=== PATIENT | female | born 1980 | race Caucasian/White ===

== ENCOUNTER → 2018-05-30 09:10 | Outpatient (CLI) | payer OTHER, SELFPAY ==
--- NOTE | 2018-05-30 | DI.US.S_ITS ---
PROCEDURE: US PELVIC COMPLETE INDICATIONS: BRCA2, PRE HYSTERECTOMY TECHNIQUE: Real-time scanning was performed of the pelvic organs, with image documentation. Additional endovaginal scanning was necessary due to incomplete visualization of the adnexal and endometrial structures by transabdominal scanning. COMPARISON: None. FINDINGS: Transabdominal scanning: Limited scanning through the kidneys shows no hydronephrosis. No pathologic free abdominal or pelvic fluid. Endovaginal scanning: Uterus: Uterus is normal in size at 9.2 x 4.9 x 6.9 cm. The endometrium measures 13.9 mm in combined thickness. The cervix is within normal limits. Ovaries: The right ovary measures 2.7 x 1.6 x 2.6 cm. In blood flow is demonstrated to the right ovary, which has a normal arterial Doppler waveform. A small (1.3 cm) echogenic nodule within the right ovary demonstrates peripheral vascularity, which there are present a recently ruptured follicle. The left ovary measures 2.09 x 2.5 cm and is normal in size. Good flow is demonstrated to the left ovary, which has a normal arterial Doppler waveform. A collapsing follicle is present involving the left ovary measuring up to 1.5 cm. IMPRESSION: 1. Unremarkable uterus. 2. The ovaries appear to be within normal limits. Echogenic nodule within the right ovary probably represents a small hemorrhagic follicle. A collapsing left ovarian follicle is noted. Dictated by: Landen Ruff M.D. on 05/30/2018 at 9:05 Approved by: Landen Ruff M.D. on 05/30/2018 at 9:28
[2018-05-30 10:14] LABS: Cancer Antigen 125 22 U/mL (0-35)
== END ==
PROVIDERS: PCP Family Medicine; Visit Provider Obstetrics & Gynecology
DX: Z15.01 Genetic susceptibility to malignant neoplasm of breast (principal); Z15.09 Genetic susceptibility to other malignant neoplasm
CPT/HCPCS: 36415; 76830; 76856; 86304

== ENCOUNTER → 2018-10-25 08:01 | Outpatient (CLI) | payer OTHER, SELFPAY ==
--- NOTE | 2018-10-25 | DI.US.S_ITS ---
PROCEDURE: US PELVIC COMPLETE INDICATIONS: BRCA 2 POSITIVE TECHNIQUE: Real-time scanning was performed of the pelvic organs, with image documentation. Additional endovaginal scanning was necessary due to incomplete visualization of the adnexal and endometrial structures by transabdominal scanning. COMPARISON: [facility], , US PELVIC COMPLETE, 05/30/2018, 9:27. FINDINGS: Transabdominal scanning: Limited scanning through the kidneys shows no hydronephrosis. No pathologic free abdominal or pelvic fluid. Endovaginal scanning: Uterus: Uterus is normal in size at 8.8 x 4.3 x 6.9 cm. The endometrium measures 6.1 mm in combined thickness. Ovaries: Ovaries normal in size measuring 3.0 x 2.0 x 1.9 cm on the right and 3.7 x 2.3 x 2.0 cm on the left. Bilateral follicular cysts present, largest measuring 1.9 cm on the left. IMPRESSION: Bilateral physiologic follicles. Dictated by: Benjamin SMITH Interpreted: Milo Gómez MD on 10/25/2018 at 11:54 Approved by: Milo Gómez M.D. on 10/25/2018 at 16:07
[2018-10-25 09:55] LABS: Cancer Antigen 125 15 U/mL (0-35)
== END ==
PROVIDERS: PCP Family Medicine; Visit Provider Obstetrics & Gynecology
DX: Z15.01 Genetic susceptibility to malignant neoplasm of breast (principal); Z15.09 Genetic susceptibility to other malignant neoplasm; N83.02 Follicular cyst of left ovary; N83.01 Follicular cyst of right ovary
CPT/HCPCS: 36415; 76830; 76856; 86304

== ENCOUNTER 2018-11-30 20:39 | Emergency (ER) | payer OTHER, SELFPAY ==
[2018-11-30 20:41] VITALS: BP 116/74; PULSE 83; RESP 20; TEMP 36.7; O2SAT 100; BMI 22.1
[2018-11-30 21:22] LABS: Add Manual Diff / Slide Review NO; Basophils Absolute Auto 100 /uL (0-100); Basophils Percent Auto 0.7 % (0-2); Eosinophils Absolute Auto 300 /uL (0-450); Eosinophils Percent Auto 2.6 % (2-4); Hematocrit 37.3 % (36-46); Hemoglobin 12.3 g/dL (12.0-16.0); Lymphocytes Absolute Auto 2200 /uL (1100-4500); Lymphocytes Percent Auto 20.2 % (25-40); Mean Corpuscular Hemoglobin 29.2 PG (26-34); Mean Corpuscular Volume 88.5 fL (80-100); Monocytes Absolute Auto 600 /uL (0-900); Monocytes Percent Auto 5.9 % (3-14); Neutrophils Absolute Auto 7700 /uL (1500-7000); Neutrophils Percent Auto 70.6 % (50-75); Platelet Count 327 X10^3/uL (150-400); Red Blood Cell Count 4.22 X10^6/uL (4.0-5.2); Red Cell Distribution Width 15.6 % (11.6-14.8); White Blood Cell Count 10.9 X10^3/uL (4.5-11.0)
--- NOTE | 2018-11-30 21:26 | DI.CT.S_ITS ---
PROCEDURE: CT ANGIO CHEST PE PROTOCOL INDICATIONS: short of breath recent surgery TECHNIQUE: After the administration of intravenous contrast, 2 mm thick sections acquired from the pulmonary apices to the posterior costophrenic angles. 3-dimensional maximum intensity projection (MIP) coronal and sagittal reformats were then acquired through the thorax. For radiation dose reduction, the following was used: automated exposure control, adjustment of mA and/or kV according to patient size. COMPARISON: None. FINDINGS: Image quality: Excellent. Pulmonary arteries: Pulmonary arteries are normal in size, and demonstrate no intraluminal filling defects to suggest central pulmonary embolism. Lungs and pleura: Lungs are clear. No pleural effusions or pneumothorax. Central and peripheral airways are patent. Mediastinum: Heart size is normal, without pericardial effusion. No mediastinal or hilar adenopathy. Thoracic aorta is normal in caliber and enhancement. Esophagus is normal in caliber, without hiatal hernia. Bones and chest wall: No suspicious bony lesions. Ribs and thoracic spine appear intact throughout. Thyroid gland is within normal limits. No axillary or supraclavicular adenopathy. Abdomen: Visualized upper abdominal solid organs appear normal in the early arterial phase of enhancement. IMPRESSION: 1. No acute process. 2. No pulmonary embolus. Dictated by: Bernie May M.D. on 12/01/2018 at 7:34 Approved by: Bernie May M.D. on 12/01/2018 at 7:36
[2018-11-30 21:27] LABS: Alanine Aminotransferase 13 IU/L (9-52); Albumin 4.4 g/dL (3.5-5.0); Albumin Globulin Ratio 1.5 (1.0-2.8); Alkaline Phosphatase 64 U/L (38-126); Aspartate Aminotransferase 20 IU/L (14-36); BUN Creatinine Ratio 18.8 (6-22); Bilirubin Total 0.8 mg/dL (0.2-1.3); Blood Urea Nitrogen 15 mg/dL (7-17); Calcium 9.4 mg/dL (8.4-10.2); Carbon Dioxide 28 mmol/L (22-32); Chloride 102 mmol/L (98-107); Estimated Glomerular Filt Rate > 60.0 mL/min (>60); Glucose 89 mg/dL (70-100); HEMOLYSIS < 15 (0-50); Potassium 3.7 mmol/L (3.4-5.1); Sodium 138 mmol/L (137-145); Total Protein 7.4 g/dL (6.3-8.2)
[2018-11-30 21:30] VITALS: BP 108/69; PULSE 62; RESP 16; O2SAT 100
[2018-11-30 22:21] VITALS: PULSE 61; RESP 14; O2SAT 98
[2018-11-30] MEDS: ALBUTEROL 2.5 MG/3 ML NEB (ADULT) INH (22:21)
--- NOTE | 2018-11-30 23:03 | ED.SOB ---
HPI - SOB/Dyspnea General Chief Complaint: Shortness of Breath/Dyspnea Stated Complaint: SOB Time Seen by Provider: 11/30/18 20:48 Source: patient Mode of arrival: ambulatory Limitations: no limitations History of Present Illness Patient is a 38-year-old female who presents with heart palpitations shortness of breath. She has a recent diagnosis of bracket a. She had prophylactic bilateral mastectomy. 3 days ago she had liposuction and filler. She started having heart palpitations and shortness of breath with exertion and at rest. Denies any fever, although she is having dry non- productive cough. No hemoptysis. MD Complaint: shortness of breath Related Data Home Medications Medication Instructions Recorded Confirmed doxycycline hyclate 100 mg capsule 100 mg PO BID 11/14/17 11/14/17 Allergies Allergy/AdvReac Type Severity Reaction Status Date / Time amoxicillin [AMOXICILLIN] Allergy Unknown RASH Verified 11/14/17 10:12 Review of Systems Review of Systems GENERAL: Denies chills, fatigue, malaise, fever, sweats, travel HEENT: Denies sinus pain, ear pain, sore throat, difficulty swallowing, neck pain RESPIRATORY: See HPI CARDIOVASCULAR: Denies chest pain, palpitations, orthopnea, edema GASTROINTESTINAL: Denies nausea, vomiting, abdominal pain, diarrhea, constipation, melena. : Denies dysuria, frequency, incontinence, hematuria, urinary retention, flank pain. MUSCULOSKELETAL: Denies weakness, joint pain, or bony pain SKIN: No rash, no erythema, no pruritus NEUROLOGIC: Denies weakness, dizziness, headache, numbness, change in speech, confusion PSYCHIATRIC: No concerning psychosocial issues. 12 point review of systems is negative except for those stated above and HPI PFSH Medical History Migraines (Chronic) Surgical History Anesthesia (Inactive) Status post appendectomy Status post knee surgery Status post knee surgery Family History Father Age: 61 Colon polyps Social History Smoking Status: Never smoker Family History Father Age: 61 Colon polyps Social History Smoking Status: Never smoker Exam Initial Vital Signs Initial Vital Signs: Vital Signs Temperature 98.0 F 11/30/18 20:41 Pulse Rate 83 11/30/18 20:41 Respiratory Rate 20 11/30/18 20:41 Blood Pressure 116/74 11/30/18 20:41 Pulse Oximetry 100 11/30/18 20:41 GENERAL: Well-appearing, well-nourished and in no acute distress. HEENT: Head atraumatic,EOMI, pupils reactive, face symmetric, moist mucous membranes CARDIOVASCULAR: Regular rate and rhythm without murmurs, rubs or gallops. RESPIRATORY: Breath sounds equal bilaterally, no wheezes rales or rhonchi. ABDOMEN: Soft, nontender. Normoactive bowel sounds all 4 quadrants. No guarding or rebound. EXTREMITIES: Normal range of motion, no clubbing or edema. Neurovascularly intact NEUROLOGICAL: Alert and oriented x4.Normal gait and speech. Cranial nerves II through XII grossly intact. SKIN: Hematoma as bilateral flanks from lipoma. No other erythema testicles or rashes Course Orders Ordered: ED Orders 11/30/18 20:59 Complete Blood Count AUTO DIFF Stat Comprehensive Metabolic Panel Stat 11/30/18 21:16 Consult to Respiratory Therapy Evaluate & Treat XR chest 1V Stat 11/30/18 21:26 CT angio chest PE protocol Stat Discontinued Medications Albuterol (Ventolin) 2.5 mg INH NOW ONE Stop: 11/30/18 21:27 Last Admin: 11/30/18 22:21 Dose: 2.5 mg Vital Signs - 8 hr 11/30/18 20:41 11/30/18 21:30 11/30/18 22:21 Temperature 98.0 F Pulse Rate 83 62 61 Respiratory Rate 20 16 14 Blood Pressure 116/74 Blood Pressure [Left Arm] 108/69 Pulse Oximetry 100 100 98 11/30/18 23:27 Temperature Pulse Rate 80 Respiratory Rate 17 Blood Pressure 99/51 L Blood Pressure [Left Arm] Pulse Oximetry 96 MDM - SOB/Dyspnea Lab Data Attestation: I reviewed the patient's lab results. Result diagrams: 11/30/18 20:59 11/30/18 20:59 Lab Results 11/30/18 11/30/18 Range/Units 20:59 20:59 WBC 10.9 (4.5-11.0) X10^3/uL RBC 4.22 (4.0-5.2) X10^6/uL Hgb 12.3 (12.0-16.0) g/dL Hct 37.3 (36-46) % MCV 88.5 (80-100) fL MCH 29.2 (26-34) PG MCHC 33.0 (30-36) % RDW 15.6 H (11.6-14.8) % Plt Count 327 (150-400) X10^3/uL Neut % (Auto) 70.6 (50-75) % Lymph % (Auto) 20.2 L (25-40) % [place] % (Auto) 5.9 (3-14) % Eos % (Auto) 2.6 (2-4) % Baso % (Auto) 0.7 (0-2) % Neut # (Auto) 7700 H (8091-6083) /uL Lymph # (Auto) 2200 (5712-5729) /uL [place] # (Auto) 600 (0-900) /uL Eos # (Auto) 300 (0-450) /uL Baso # (Auto) 100 (0-100) /uL Sodium 138 (137-145) mmol/L Potassium 3.7 (3.4-5.1) mmol/L Chloride 102 (98-107) mmol/L Carbon Dioxide 28 (22-32) mmol/L BUN 15 (7-17) mg/dL Creatinine 0.80 (0.52-1.04) mg/dL Estimated GFR > 60.0 (>60) mL/min BUN/Creatinine Ratio 18.8 (6-22) Glucose 89 (70-100) mg/dL Calcium 9.4 (8.4-10.2) mg/dL Total Bilirubin 0.8 (0.2-1.3) mg/dL AST 20 (14-36) IU/L ALT 13 (9-52) IU/L Alkaline Phosphatase 64 (38-126) U/L Total Protein 7.4 (6.3-8.2) g/dL Albumin 4.4 (3.5-5.0) g/dL Globulin 3.0 (1.7-4.1) g/dL Albumin/Globulin Ratio 1.5 (1.0-2.8) Point of Care Testing Test Results Negative Urine Dip Bedside Urine Glucose Negative Bedside Urine Bilirubin - Negative Bedside Urine Ketone - Negative Urine Specific [place] 1.030 Bedside Urine Occult Blood - Negative Bedside Urine pH 5.5 Bedside Urine Protein - Negative Bedside Urine Urobilinogen - Negative Bedside Urine Nitrite - Negative Bedside Urine Leukocytes - Negative Esterase Imaging Data CT scan - chest: 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 [place] in able to go home. Discharge Plan Departure Patient Disposition: Home Clinical Impression: Acute bronchospasm Discharge Date/Time: 11/30/18 23:31 Interventions: ED Discharge Assessment Last Done: 11/30/18 23:27 Instructions: DI for Acute Bronchitis Activity Restrictions/Additional Instructions: *You have been diagnosed with bronchospasm *What to do: PE study is negative. Blood work reassuring. *Continue to take medications as directed *Follow up with your primary care provider in 2-3 days *Return to ER if you should have increasing shortness of breath or heart palpitations. or any new, worsening or concerning symptoms Prescriptions: No Action doxycycline hyclate 100 mg capsule 100 mg PO BID RF: 0 Referrals: Berny Cruz MD [Primary Care Provider] -
--- NOTE | 2018-11-30 23:06 | ED_ITS ---
HPI - SOB/Dyspnea General Chief Complaint: Shortness of Breath/Dyspnea Stated Complaint: SOB Time Seen by Provider: 11/30/18 20:48 Source: patient Mode of arrival: ambulatory Limitations: no limitations History of Present Illness Patient is a 38-year-old female who presents with heart palpitations shortness of breath. She has a recent diagnosis of bracket a. She had prophylactic bilateral mastectomy. 3 days ago she had liposuction and filler. She started having heart palpitations and shortness of breath with exertion and at rest. D enies any fever, although she is having dry non- productive cough. No hemoptysis. MD Complaint: shortness of breath Related Data Home Medications Medication Instructions Recorded Confirmed doxycycline hyclate 100 mg capsule 100 mg PO BID 11/14/17 11/14/17 Allergies Allergy/AdvReac Type Severity Reaction Status Date / Time amoxicillin [AMOXICILLIN] Allergy Unknown RASH Verified 11/14/17 10:12 Review of Systems Review of Systems GENERAL: Denies chills, fatigue, malaise, fever, sweats, travel HEENT: Denies sinus pain, ear pain, sore throat, difficulty swallowing, neck pain RESPIRATORY: See HPI CARDIOVASCULAR: Denies chest pain, palpitations, orthopnea, edema GASTROINTESTINAL: Denies nausea, vomiting, abdominal pain, diarrhea, constipation, melena. : Denies dysuria, frequency, incontinence, hematuria, urinary retention, flank pain. MUSCULOSKELETAL: Denies weakness, joint pain, or bony pain SKIN: No rash, no erythema, no pruritus NEUROLOGIC: Denies weakness, dizziness, headache, numbness, change in speech, confusion PSYCHIATRIC: No concerning psychosocial issues. 12 point review of systems is negative except for those stated above and HPI PFSH Medical History Migraines (Chronic) Surgical History Anesthesia (Inactive) Status post appendectomy Status post knee surgery Status post knee surgery Family History Father Age: 61 Colon polyps Social History Smoking Status: Never smoker Family History Father Age: 61 Colon polyps Social History Smoking Status: Never smoker Exam Initial Vital Signs Initial Vital Signs: Vital Signs Temperature 98.0 F 11/30/18 20:41 Pulse Rate 83 11/30/18 20:41 Respiratory Rate 20 11/30/18 20:41 Blood Pressure 116/74 11/30/18 20:41 Pulse Oximetry 100 11/30/18 20:41 GENERAL: Well-appearing, well-nourished and in no acute distress. HEENT: Head atraumatic,EOMI, pupils reactive, face symmetric, moist mucous membranes CARDIOVASCULAR: Regular rate and rhythm without murmurs, rubs or gallops. RESPIRATORY: Breath sounds equal bilaterally, no wheezes rales or rhonchi. ABDOMEN: Soft, nontender. Normoactive bowel sounds all 4 quadrants. No guarding or rebound. EXTREMITIES: Normal range of motion, no clubbing or edema. Neurovascularly intact NEUROLOGICAL: Alert and oriented x4.Normal gait and speech. Cranial nerves II through XII grossly intact. SKIN: Hematoma as bilateral flanks from lipoma. No other erythema testicles or rashes Course Orders Ordered: ED Orders 11/30/18 20:59 Complete Blood Count AUTO DIFF Stat Comprehensive Metabolic Panel Stat 11/30/18 21:16 Consult to Respiratory Therapy Evaluate & Treat XR chest 1V Stat 11/30/18 21:26 CT angio chest PE protocol Stat Discontinued Medications Albuterol (Ventolin) 2.5 mg INH NOW ONE Stop: 11/30/18 21:27 Last Admin: 11/30/18 22:21 Dose: 2.5 mg Vital Signs - 8 hr 11/30/18 20:41 11/30/18 21:30 11/30/18 22:21 Temperature 98.0 F Pulse Rate 83 62 61 Respiratory Rate 20 16 14 Blood Pressure 116/74 Blood Pressure [Left Arm] 108/69 Pulse Oximetry 100 100 98 11/30/18 23:27 Temperature Pulse Rate 80 Respiratory Rate 17 Blood Pressure 99/51 L Blood Pressure [Left Arm] Pulse Oximetry 96 MDM - SOB/Dyspnea Lab Data Attestation: I reviewed the patient's lab results. Result diagrams: 11/30/18 20:59 11/30/18 20:59 Lab Results 11/30/18 11/30/18 Range/Units 20:59 20:59 WBC 10.9 (4.5-11.0) X10^3/uL RBC 4.22 (4.0-5.2) X10^6/uL Hgb 12.3 (12.0-16.0) g/dL Hct 37.3 (36-46) % MCV 88.5 (80-100) fL MCH 29.2 (26-34) PG MCHC 33.0 (30-36) % RDW 15.6 H (11.6-14.8) % Plt Count 327 (150-400) X10^3/uL Neut % (Auto) 70.6 (50-75) % Lymph % (Auto) 20.2 L (25-40) % [place] % (Auto) 5.9 (3-14) % Eos % (Auto) 2.6 (2-4) % Baso % (Auto) 0.7 (0-2) % Neut # (Auto) 7700 H (8104-6873) /uL Lymph # (Auto) 2200 (5932-7051) /uL [place] # (Auto) 600 (0-900) /uL Eos # (Auto) 300 (0-450) /uL Baso # (Auto) 100 (0-100) /uL Sodium 138 (137-145) mmol/L Potassium 3.7 (3.4-5.1) mmol/L Chloride 102 (98-107) mmol/L Carbon Dioxide 28 (22-32) mmol/L BUN 15 (7-17) mg/dL Creatinine 0.80 (0.52-1.04) mg/dL Estimated GFR > 60.0 (>60) mL/min BUN/Creatinine Ratio 18.8 (6-22) Glucose 89 (70-100) mg/dL Calcium 9.4 (8.4-10.2) mg/dL Total Bilirubin 0.8 (0.2-1.3) mg/dL AST 20 (14-36) IU/L ALT 13 (9-52) IU/L Alkaline Phosphatase 64 (38-126) U/L Total Protein 7.4 (6.3-8.2) g/dL Albumin 4.4 (3.5-5.0) g/dL Globulin 3.0 (1.7-4.1) g/dL Albumin/Globulin Ratio 1.5 (1.0-2.8) Point of Care Testing Test Results Negative Urine Dip Bedside Urine Glucose Negative Bedside Urine Bilirubin - Negative Bedside Urine Ketone - Negative Urine Specific [place] 1.030 Bedside Urine Occult Blood - Negative Bedside Urine pH 5.5 Bedside Urine Protein - Negative Bedside Urine Urobilinogen - Negative Bedside Urine Nitrite - Negative Bedside Urine Leukocytes - Negative Esterase Imaging Data CT scan - chest: 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 [place] in able to go home. Discharge Plan Departure Patient Disposition: Home Clinical Impression: Acute bronchospasm Discharge Date/Time: 11/30/18 23:31 Interventions: ED Discharge Assessment Last Done: 11/30/18 23:27 Instructions: DI for Acute Bronchitis Activity Restrictions/Additional Instructions: *You have been diagnosed with bronchospasm *What to do: PE study is negative. Blood work reassuring. *Continue to take medications as directed *Follow up with your primary care provider in 2-3 days *Return to ER if you should have increasing shortness of breath or heart palpitations. or any new, worsening or concerning symptoms Prescriptions: No Action doxycycline hyclate 100 mg capsule 100 mg PO BID RF: 0 Referrals: Berny Cruz MD [Primary Care Provider] -
[2018-11-30 23:27] VITALS: BP 99/51; PULSE 80; RESP 17; O2SAT 96
== END 2018-11-30 23:31 | disposition home or self-care (01) ==
PROVIDERS: Emergency Provider Emergency Medicine; PCP Family Medicine
DX: J98.01 Acute bronchospasm (principal); R00.2 Palpitations
CPT/HCPCS: 71275; 80053; 81003; 81025; 85025; 93005; 94640; 99283; 99285; J7613; Q9967

== ENCOUNTER 2019-06-13 10:08 | Day surgery (SDC) | payer OTHER, SELFPAY ==
[2019-06-13] VITALS (11 sets, daily range): BP systolic 93–109; BP diastolic 60–73; PULSE 48–87; RESP 14–21; TEMP 36.2–37.2; O2SAT 97–100; BMI 22.1
--- NOTE | 2019-06-13 | PATH_ITS ---
[facility] Accession Number: [id number] . 01 Material submitted: . uterine adnexa - BILATERAL FALLOPIAN TUBES AND OVARIES . 01 Clinical history: . LAP RADHA SALPINGO-OOPHORECTOMY . 02 Diagnosis: Bilateral Fallopian Tubes and Ovaries, Bilateral Salpingo-oophorectomy: Grossly described ovary #1 with two prominent corpus luteum cysts (each approximately 10 mm) and one benign serous cyst (approximately 8 mm); negative for atypia or malignancy. Grossly described ovary #2 with a benign follicular cyst (approximately 4 mm); negative for atypia or malignancy. Grossly described fallopian tube #1 with benign paratubal cysts (ranging from less than 1 mm to 2 mm); negative for atypia or malignancy. Grossly described fallopian tube #2 with a benign paratubal fibroma (4 mm) and benign paratubal cysts (up to 1.8 cm); negative for cytologic atypia or malignancy. [facility] 06/16/2019 1117 Local . 02 Electronically signed: . Katya Tamez MD, Pathologist NPI- [id number] . 01 Gross description: . Received in formalin, labeled bilateral fallopian tubes and ovaries, are two ovaries (ovary #1: 3.7 x 2.3 x 1.6 cm; ovary #2: 3.4 x 2.4 x 1.0 cm) with attached fimbriated fallopian tubes (tube #1: length-5.1 cm, diameter-0.8 cm; tube #2: length-6.2 cm, diameter-0.7 cm). The ovaries have beard-yellow, smooth, shiny, flat, focally bosselated serosa with beard-white, solid, cystic parenchyma with corpus albicans and corpus luteum identified. The cavities (0.1-0.7 cm) contain clear, colorless fluid. The fallopian tubes have de la vega-purple, smooth, shiny serosa beard unremarkable lumens. Fallopian tube #2 contains a paratubal cyst (1.8 x 1.5 x 1.0 cm) containing clear, colorless fluid. A beard-white, solid, firm nodule (0.4 x 0.3 x 0.2 cm) is also identified involving the fimbria #2. Section code: (A1) ovary #1, rental representative serial section; (A2) ovary #2, rental representative serial section; (A3) fallopian tube #1, rental representative serial section; (A4-A5) fimbria #1, bivalved, entirely submitted; (A6) fallopian tube #2, rental representative serial section; (A7-A8) fimbria #2, bivalved, entirely submitted. ([id number]) /[facility] 06/14/2019 0916 Local . 02 Pathologist provided ICD-10: Z15.01 . 02 CPT . 892506 Performed at: 01 [facility] [address] [id number] MD Josias Clark MD Phone: [phone] Performed at: 02 [facility] [address] [place] [id number] MD Marjorie Torrez MD Phone: [phone]
[2019-06-13] MEDS: LACTATED RINGERS 1,000 ML 100 ML IV (10:25)
--- NOTE | 2019-06-13 11:18 | SUR.OPER ---
Lithotomy on padded OR bed, head on pillow, arms padded and tucked at sides. Legs secured in padded yellow fins stirrups.
[2019-06-13] MEDS: SCOPOLAMINE 1 PATCH TOP (11:22)
[2019-06-13] MEDS: ACETAMINOPHEN IV 1,000 MG/100 ML VIAL 400 MG IV (12:11)
[2019-06-13] MEDS: BUPIVACAINE 0.5% W/ EPI (PF) 30 ML VIAL INJ (12:36)
--- NOTE | 2019-06-13 13:24 | SUR.PHASEI ---
Declined Fentanyl for pain
--- NOTE | 2019-06-13 13:33 | SUR.PHASEI ---
Dr Wheeler notified patient's hr down to 47-50. OK for patient to discharge.
--- NOTE | 2019-06-17 14:01 | PM.PREOP ---
Pre-operative Note Interval Note History & Physical reviewed/Exam performed by Physician: Yes Changes to H&P: No
--- NOTE | 2019-06-17 14:02 | PM.GYNOP.1 ---
Operative Date/Time/Diagnoses Date of procedure: 06/13/19 Time of procedure: 13:30 Pre-op diagnosis: BRCA 2 positive Post-op diagnosis: same Procedure & Clinicians Procedure: Procedures Operation Date: 06/13/19 11:15 Actual Procedures Side Surgeon p Laparoscopic Salpingectomy-oophorectomy Bilateral Marimar Spicer MD Indications: BRCA 2 positive Surgeon: Marimar Spicer Anesthesia Type: General Operative Notes Findings: Normal tubes and ovaries Normal liver Appendix previously removed Closure Type: primary Specimen(s): left tube & ovary and right tube & ovary Estimated blood loss (mL): 5 Blood products transfused: none Procedure in detail: Patient was taken to the operating room where she was placed in the dorsal supine position. After adequate general endotracheal anesthesia was achieved, she was placed in the dorsal lithotomy position, and prepped and draped in the usual sterile fashion. A time-out was performed. A bivalve speculum was placed into the vagina and the anterior lip of the cervix was grasped with a single-tooth tenaculum. The cervical os was sequentially dilated until the Zumi uterine manipulator could pass easily into the endometrial cavity. The single-tooth tenaculum was removed from the anterior lip of the cervix. The bivalve speculum was removed from the vagina. Attention was then turned to the abdomen where 6 cc of 0.5% Marcaine were injected on the upper edge of the umbilical incision. A 5 mm incision was made. The Veress needle was placed into the peritoneal cavity, and its placement confirmed by aspiration and drop test. The abdominal cavity was insufflated with 3.4 L of CO2. The Veress needle was removed, and a 5 mm trocar was placed without difficulty. Three other incisions were made along the reconstructions scar 2 of them 5 mm in length on the outer edges after 6 cc of 0.5% Marcaine with epinephrine were injected. A 3rd one was made in the midline approximately 11 mm. Two 5 mm trocars were placed on the lateral incisions. An 11 mm trocar was placed in the midline. The right tube and ovary were grasped with an atraumatic grasper. Using the PlasmaKinetic was settings at 40 w, the infundibulopelvic ligament on the right side was cauterized and cut. As was the mesosalpinx all the way down to the cornu of the uterus. The utero-ovarian ligaments were cauterized and cut. The tube was amputated at the cornua. Hemostasis was achieved. This was repeated on the patient's left side. A small endobag was placed through the suprapubic trocar. The tubes and ovaries were placed into the bag. The trocar was removed. The fascial incision was extended bluntly with a Jah. The bag was removed through the suprapubic incision. The pelvis was irrigated and there was no bleeding noted. The instruments were removed from the abdomen. The CO2 was allowed to escape. The fascial incision on the suprapubic incision was closed with 0 Vicryl in a running fashion. All of the incisions were closed superficially with 4 0 Biosyn in a subcuticular fashion. Steri-Strips, 2 x 2, and op site were placed. The Zumi uterine manipulator was removed from the uterus. Sponge, lap, and instrument counts were correct x2. The patient tolerated the procedure well, and was taken to PACU in stable condition. Complications: none Post-operative Condition: stable Disposition: PACU Plan for aftercare: Home after recovery
== END 2019-06-13 14:32 | disposition home or self-care (01) ==
PROVIDERS: PCP Family Medicine; Visit Provider Obstetrics & Gynecology
PROC: 0UT74ZZ Resection of Bilateral Fallopian Tubes, Percutaneous Endoscopic Approach (ICD-10-PCS; CPT 58661; principal; 2019-06-13 11:15)
DX: Z40.02 Encounter for prophylactic removal of ovary(s) (principal); Z15.01 Genetic susceptibility to malignant neoplasm of breast; G43.909 Migraine, unspecified, not intractable, without status migrainosus; N83.10 Corpus luteum cyst of ovary, unspecified side; N83.00 Follicular cyst of ovary, unspecified side; N83.8 Other noninflammatory disorders of ovary, fallopian tube and broad ligament
CPT/HCPCS: 58661; J0131; J1100; J1885; J2250; J2405; J2704; J3010

== ENCOUNTER → 2021-01-19 09:29 | Outpatient (CLI) | payer OTHER, SELFPAY ==
[2021-01-19 09:39] LABS: Bacteria Urine None Seen; RBC Urine None Seen (0-5/HPF); WBC Urine None Seen (0-5/HPF)
[2021-01-19 13:15] LABS: Appearance Urine UA CLEAR; Bilirubin Urine UA NEGATIVE (NEGATIVE); Color Urine UA YELLOW; Glucose Urine UA NEGATIVE (Negative); Ketones Urine UA NEGATIVE (NEGATIVE); Leukocyte Esterase Urine UA NEGATIVE (NEGATIVE); Nitrite Urine UA NEGATIVE (Negative); Occult Blood Urine UA NEGATIVE (Negative); Protein Urine UA NEGATIVE (Negative); Specific Gravity Urine UA 1.015 (1.000-1.035); Urobilinogen Urine UA 0.2 E.U./dL (0.2)
[2021-01-19 13:18] LABS: pH Urine UA 6.5 (4.5-8.0)
[2021-01-19 13:37] LABS: Squamous Epithelial Cell Urine 10-30 /HPF (0-5/HPF)
[2021-01-19 13:38] LABS: Culture Indicated Urine Cult Not Indicated
== END ==
PROVIDERS: PCP Family Medicine; Referring Provider Family Medicine; Visit Provider Family Medicine
DX: R30.0 Dysuria (principal)
CPT/HCPCS: 81001

== ENCOUNTER → 2021-02-02 18:31 | Outpatient (CLI) | payer OTHER, SELFPAY ==
[2021-02-02 18:55] LABS: COVID19 -Nasal RAPID Negative (Negative)
== END ==
PROVIDERS: PCP Family Medicine; Visit Provider Nurse Practitioner
DX: J31.2 Chronic pharyngitis (principal); Z20.822 Contact with and (suspected) exposure to COVID-19
CPT/HCPCS: 87070; 87635

== ENCOUNTER → 2021-04-20 17:35 | Outpatient (CLI) | payer OTHER, SELFPAY ==
[2021-04-21 06:40] LABS: Candida species Negative (Negative); Gardnerella vaginalis Negative (Negative); Trichomoas vaginalis Negative (Negative)
== END ==
PROVIDERS: PCP Family Medicine; Referring Provider Obstetrics & Gynecology; Visit Provider Obstetrics & Gynecology
DX: N89.8 Other specified noninflammatory disorders of vagina (principal)
CPT/HCPCS: 87480; 87510; 87660

== ENCOUNTER → 2021-06-24 10:42 | Outpatient (CLI) | payer OTHER, SELFPAY ==
[2021-06-24 12:07] LABS: Appearance Urine UA CLEAR; Bilirubin Urine UA NEGATIVE (NEGATIVE); Color Urine UA YELLOW; Glucose Urine UA NEGATIVE (Negative); Ketones Urine UA NEGATIVE (NEGATIVE); Leukocyte Esterase Urine UA NEGATIVE (NEGATIVE); Nitrite Urine UA NEGATIVE (Negative); Occult Blood Urine UA NEGATIVE (Negative); Protein Urine UA NEGATIVE (Negative); Urobilinogen Urine UA 0.2 E.U./dL (0.2)
== END ==
PROVIDERS: PCP Family Medicine; Referring Provider Obstetrics & Gynecology; Visit Provider Obstetrics & Gynecology
DX: N39.0 Urinary tract infection, site not specified (principal)
CPT/HCPCS: 81003

== ENCOUNTER → 2021-12-14 10:49 | Outpatient (CLI) | payer OTHER, SELFPAY ==
[2021-12-14 12:03] LABS: Free T4, Direct Thyroxine 1.07 ng/dL (0.78-2.19)
[2021-12-14 12:17] LABS: Thyroid Stimulating Hormone 1.02 uIU/mL (0.47-4.68)
== END ==
PROVIDERS: PCP Family Medicine; Referring Provider Family Medicine; Visit Provider Family Medicine
DX: R63.5 Abnormal weight gain (principal)
CPT/HCPCS: 36415; 84439; 84443

== ENCOUNTER 2022-02-19 15:26 | Emergency (ER) | payer OTHER, SELFPAY ==
[2022-02-19 15:32] VITALS: BP 114/71; PULSE 86; RESP 22; TEMP 36.6; O2SAT 100
--- NOTE | 2022-02-19 16:41 | ED_ITS ---
HPI - Skin/Abscess/Foreign Bdy General Chief complaint: Skin/Abscess/Foreign Body Stated complaint: Port/Red/Hot/Inflammed/Arm Tingling Time Seen by Provider: 02/19/22 16:00 Source: patient Mode of arrival: Ambulatory Limitations: no limitations History of Present Illness HPI narrative: This is a 41-year-old female with recent diagnosis in January 2022 BRCA positive breast cancer who had had a prior prophylactic mastectomy and oophorectomy. Patient had port placed on Sunday, February 15 they kept access in place and gave her chemo the following day and it has not been accessed since its placement. Patient noticed some very slight redness yesterday it has spread today. She denies fevers or chills. Some mild chest pain at the site, she denies any shortness of breath she is had a little tingling into her left upper extremity, she denies any vomiting but is starting to have some nausea she states she received version of ondansetron that last about 72 hours in the hospital. Patient denies any syncope no swelling of her extremities. She is has not had any other color changes. Patient denies any daily medications currently. Allergic to amoxicillin. She is receiving her care through [facility]. Related Data Previous Rx's Medication Instructions Recorded estradiol 2 mg (7.5 mcg/24 hour) 1 vag ring vaginal [id number] #1 ea 04/25/21 vaginal ring (Estring) rizatriptan 10 mg disintegrating See Rx Instructions .Route 09/12/21 tablet .COMPLEX #8 tabs estradiol 0.075 mg/24 hr See Rx Instructions .Route 01/02/22 semiweekly transdermal patch .COMPLEX #8 patches clindamycin HCl 300 mg capsule 300 mg PO QID #40 caps 02/19/22 Allergies Allergy/AdvReac Type Severity Reaction Status Date / Time amoxicillin [AMOXICILLIN] Allergy Unknown RASH Verified 07/28/21 10:40 Review of Systems Review of Systems ROS Unobtainable: All systems reviewed & are unremarkable except as noted in HPI and below Patient History Medical History BRCA positive Migraines Surgical History Anesthesia History of prophylactic mastectomy of both breasts (06/19/18) Hx of breast reconstruction (11/27/18) Status post appendectomy Status post knee surgery Status post knee surgery Family History Father Age: 64 Colon polyps Social History household members: spouse Smoking Status: Never smoker Smoking Status: Never smoker Exam Narrative Exam Narrative: GENERAL: Alert and oriented x three, female in mild distress. HEENT: Head normocephalic, atraumatic, EOMI, pupils reactive, face symmetric, moist mucous membranes NECK: Supple, full range of motion CARDIOVASCULAR: Regular rate and rhythm without murmurs, rubs or gallops. Patient's port has incisions that appear clean and dry, they have not dehisced there is a surrounding area of erythema around the main portion of the port and just above that is approximately 6 cm x 4 cm at its widest point that. Patient has slight warmth. Mildly tender to touch. No fluctuance or fluid collection. RESPIRATORY: Breath sounds equal bilaterally, no wheezes rales or rhonchi. No tachypnea or accessory muscle use. ABDOMEN: Soft, nontender. Normoactive bowel sounds all 4 quadrants. No guarding or rebound, rigidity, no mass : No CVA tenderness EXTREMITIES: Normal range of motion, no clubbing or edema. Neurovascularly intact. 2+ pulses bilaterally. NEUROLOGICAL: Cranial nerves II through XII grossly intact. Moving all extremities SKIN: Warm, dry, no petechiae, no rashes or lesions other than above. Initial Vital Signs Initial Vital Signs: Vital Signs Temperature 97.8 F 02/19/22 15:32 Pulse Rate 86 02/19/22 15:32 Respiratory Rate 22 02/19/22 15:32 Blood Pressure 114/71 02/19/22 15:32 Pulse Oximetry 100 02/19/22 15:32 Oxygen Delivery Method 02/19/22 15:32 Course Orders Ordered: ED Orders 02/19/22 16:54 CT angio chest PE protocol Stat 02/19/22 17:08 Complete Blood Count AUTO DIFF Stat Comprehensive Metabolic Panel Stat Lactate (Lactic Acid) Stat Partial Thromboplastin Time Stat Procalcitonin Stat Prothrombin Time INR Stat Troponin & CK Cardiac Panel Stat 02/19/22 17:21 Blood Culture Stat Discontinued Medications Clindamycin HCl (Clindamycin 150 Mg Capsule) 300 mg PO NOW ONE Stop: 02/19/22 18:42 Last Admin: 02/19/22 18:45 Dose: 300 mg Documented By: ADITI Clindamycin Phosphate (Cleocin) 900 mg in 50 mls @ 50 mls/hr IV NOW ONE Stop: 02/19/22 18:01 Last Infusion: 02/19/22 18:21 Dose: 0 mls/hr Documented By: Admin: 02/19/22 17:20 Dose: 50 mls/hr Documented By: METE Vital Signs Vital signs: Vital Signs - 8 hr 02/19/22 15:32 Temperature 97.8 F Pulse Rate 86 Respiratory Rate 22 Blood Pressure 114/71 Pulse Oximetry 100 Oxygen Delivery Method Room Air MDM - Skin/Abscess/Foreign Bdy Lab Data Result diagrams: 02/19/22 17:08 02/19/22 17:08 Labs: Lab Results 02/19/22 02/19/22 02/19/22 Range/Units 17:08 17:08 17:08 WBC 4.4 L (4.5-11.0) X10^3/uL RBC 4.65 (4.0-5.2) X10^6/uL Hgb 13.3 (12.0-16.0) g/dL Hct 39.5 (36-46) % MCV 84.8 (80-100) fL MCH 28.6 (26-34) PG MCHC 33.7 (30-36) % RDW 14.8 (11.6-14.8) % Plt Count 276 (150-400) X10^3/uL Neut % (Auto) 67.0 (50-75) % Lymph % (Auto) 27.1 (25-40) % [place] % (Auto) 3.2 (3-14) % Eos % (Auto) 1.9 L (2-4) % Baso % (Auto) 0.8 (0-2) % Neut # (Auto) 2900 (5758-6085) /uL Lymph # (Auto) 1200 (1848-5197) /uL [place] # (Auto) 100 (0-900) /uL Eos # (Auto) 100 (0-450) /uL Baso # (Auto) 0 (0-100) /uL PT 11.5 (10.1-12.7) SECONDS INR 1.0 (0.9-1.3) APTT 34 (26-36) SECONDS Sodium (137-145) mmol/L Potassium (3.4-5.1) mmol/L Chloride (98-107) mmol/L Carbon Dioxide (22-32) mmol/L BUN (7-17) mg/dL Creatinine (0.52-1.04) mg/dL Estimated GFR (>60) mL/min BUN/Creatinine Ratio (6-22) Glucose (70-100) mg/dL Lactate (0.7-2.1) mmol/L Calcium (8.4-10.2) mg/dL Total Bilirubin (0.2-1.3) mg/dL AST (14-36) IU/L ALT (<35) IU/L Alkaline Phosphatase (38-126) U/L Total Creatine Kinase (30-135) U/L CK-MB (CK-2) CK-MB (CK-2) Rel Index Troponin I (0.01-0.034) ng/mL Total Protein (6.3-8.2) g/dL Albumin (3.5-5.0) g/dL Globulin (1.7-4.1) g/dL Albumin/Globulin Ratio (1.0-2.8) Procalcitonin (<0.5) ng/mL 02/19/22 02/19/22 Range/Units 17:08 17:08 WBC (4.5-11.0) X10^3/uL RBC (4.0-5.2) X10^6/uL Hgb (12.0-16.0) g/dL Hct (36-46) % MCV (80-100) fL MCH (26-34) PG MCHC (30-36) % RDW (11.6-14.8) % Plt Count (150-400) X10^3/uL Neut % (Auto) (50-75) % Lymph % (Auto) (25-40) % [place] % (Auto) (3-14) % Eos % (Auto) (2-4) % Baso % (Auto) (0-2) % Neut # (Auto) (9645-2893) /uL Lymph # (Auto) (4088-6164) /uL [place] # (Auto) (0-900) /uL Eos # (Auto) (0-450) /uL Baso # (Auto) (0-100) /uL PT (10.1-12.7) SECONDS INR (0.9-1.3) APTT (26-36) SECONDS Sodium 135 L (137-145) mmol/L Potassium 4.5 (3.4-5.1) mmol/L Chloride 102 (98-107) mmol/L Carbon Dioxide 28 (22-32) mmol/L BUN 12 (7-17) mg/dL Creatinine 1.10 H (0.52-1.04) mg/dL Estimated GFR > 60 (>60) mL/min BUN/Creatinine Ratio 10.9 (6-22) Glucose 98 (70-100) mg/dL Lactate 0.8 (0.7-2.1) mmol/L Calcium 8.8 (8.4-10.2) mg/dL Total Bilirubin 1.3 (0.2-1.3) mg/dL AST 28 (14-36) IU/L ALT 15 (<35) IU/L Alkaline Phosphatase 59 (38-126) U/L Total Creatine Kinase 74 (30-135) U/L CK-MB (CK-2) TNP CK-MB (CK-2) Rel Index TNP Troponin I < 0.012 (0.01-0.034) ng/mL Total Protein 7.9 (6.3-8.2) g/dL Albumin 4.3 (3.5-5.0) g/dL Globulin 3.6 (1.7-4.1) g/dL Albumin/Globulin Ratio 1.2 (1.0-2.8) Procalcitonin < 0.03 (<0.5) ng/mL Imaging Data CT scan - chest: Radiologist's Impression: [address] [address] [address] Scan Report Addendum Patient: Teresita Russell MR#: [id number] : 1980 Acct:[id number] Age/Sex: 41 / F Date of Service: 02/19/22 Loc: ED Accession Number: [id number] ?? Procedure: CT angio chest PE protocol Ordering Provider: Reyna Valdez D.O. ADDENDUMThis report includes an Addendum and supersedes previous reports for this exam. ? ? ? PROCEDURE:? CT ANGIO CHEST PE PROTOCOL ? INDICATIONS:? port placed last week, redness/swelling @ site, chest pain ? TECHNIQUE:? After the administration of intravenous contrast, 2 mm thick sections acquired from the pulmonary apices to the posterior costophrenic angles.? 3-dimensional maximum intensity projection (MIP) coronal and sagittal reformats were then acquired through the thorax.? For radiation dose reduction, the following was used:? automated exposure control, adjustment of mA and/or kV according to patient size.? ? COMPARISON:? [facility], CT, CT ANGIO CHEST PE PROTOCOL, 11/30/2018, 21:29. ? FINDINGS:? Image quality:? Excellent.? ? Right chest wall chest port with tip in the superior cavoatrial junction.? Mild surrounding inflammatory changes adjacent chest port without abscess organized fluid collection identified.? Surgical clips along the bilateral chest trejo. ? Pulmonary arteries:? Pulmonary arteries are normal in size, and demonstrate no intraluminal filling defects to suggest central pulmonary embolism.? ? Lungs and pleura:? Lungs are clear.? No pleural effusions or pneumothorax.? Central and peripheral airways are patent.? ? Mediastinum:? Heart size is normal, without pericardial effusion.? No mediastinal or hilar adenopathy.? Thoracic aorta is normal in caliber and enhancement.? Esophagus is normal in caliber, without hiatal hernia.? ? Bones and chest wall:? No suspicious bony lesions.? Ribs and thoracic spine appear intact throughout.? Thyroid gland is normal. No axillary or supraclavicular adenopathy.? ? Abdomen:? Visualized upper abdominal solid organs appear normal in the early arterial phase of enhancement.? ? IMPRESSION:? Start numbering ? ? Dictated by: Eduardo Stevenson M.D. on 02/19/2022 at 16:28 ? ? Approved by: Eduardo Stevenson M.D. on 02/19/2022 at 16:37 ? ? ? ADDENDUM: ? Previous impression is incorrect given channel program manager error.? The findings are unchanged.? The corrected impression is below. ? Impression: 1.? No pulmonary embolus. 2.? Mild postsurgical inflammatory changes of port placement without abscess or fluid collection identified.? ? Dictated by: Eduardo Stevenson M.D. on 02/19/2022 at 17:36 ? ? Approved by: Eduardo Stevenson M.D. on 02/19/2022 at 17:39 ? Addendum Dictated By: Eduardo Stevenson MD Addendum Signed By: Addendum Cosigned By: DD/ /07/1838 TD/TT: 02/19/2210/07/1838 PROCEDURE:? CT ANGIO CHEST PE PROTOCOL ? INDICATIONS:? port placed last week, redness/swelling @ site, chest pain ? TECHNIQUE:? After the administration of intravenous contrast, 2 mm thick sections acquired from the pulmonary apices to the posterior costophrenic angles.? 3-dimensional maximum intensity projection (MIP) coronal and sagittal reformats were then acquired through the thorax.? For radiation dose reduction, the following was used:? automated exposure control, adjustment of mA and/or kV according to patient size.? ? COMPARISON:? [facility], CT, CT ANGIO CHEST PE PROTOCOL, 11/30/2018, 21:29. ? FINDINGS:? Image quality:? Excellent.? ? Right chest wall chest port with tip in the superior cavoatrial junction.? Mild surrounding inflammatory changes adjacent chest port without abscess organized fluid collection identified.? Surgical clips along the bilateral chest trejo. ? Pulmonary arteries:? Pulmonary arteries are normal in size, and demonstrate no intraluminal filling defects to suggest central pulmonary embolism.? ? Lungs and pleura:? Lungs are clear.? No pleural effusions or pneumothorax.? Central and peripheral airways are patent.? ? Mediastinum:? Heart size is normal, without pericardial effusion.? No mediastinal or hilar adenopathy.? Thoracic aorta is normal in caliber and enhancement.? Eso phagus is normal in caliber, without hiatal hernia.? ? Bones and chest wall:? No suspicious bony lesions.? Ribs and thoracic spine appear intact throughout.? Thyroid gland is normal. No axillary or supraclavicular adenopathy.? ? Abdomen:? Visualized upper abdominal solid organs appear normal in the early arterial phase of enhancement.? ? IMPRESSION:? Start numbering ? ? Dictated by: Eduardo Stevenson M.D. on 02/19/2022 at 16:28 ? ? Approved by: Eduardo Stevenson M.D. on 02/19/2022 at 16:37 ? MDM Narrative Medical decision making narrative: This is a 41-year-old female with recent port placement in the past week 1st dose of chemotherapy was given via the port the following day and had not been accessed any additional times since. Patient noticed some small cellulitic type changes yesterday which had been pain. Patient noted to have decrease in her white count this could also be secondary to her chemotherapy, creatinine is bumped but patient states she is had multiple scans recently, she is hydrating without issue. Patient does not show any other changes consistent with sepsis, blood cultures were obtained, CT was obtained shows no pulmonary emboli or obvious clot, the port appears any organized around changes significant changes on imaging. Discussed with patient would start her on oral antibiotics and is to call to follow up with [facility] tomorrow and return precautions for the short term. She is her blood cultures are pending and if these are positive she would be re-contacted. Patient appears appropriate for discharge home at this time with close follow-up. Discharge Plan Departure Patient Disposition: Home Clinical Impression: Cellulitis of chest wall, Port-A-Cath in place Instructions: DI for Cellulitis -- Adult Activity Restrictions/Additional Instructions: You appear to have some cellulitis at your port site. Your CT imaging does not show any abscess or fluid collection, there is no signs of blood clot. Your renal function is slightly elevated today, continue to orally hydrate and avoid NSAIDs for the short-term. You may take Tylenol. Blood cultures are pending. Please call tomorrow to follow up with a [facility]. Please take antibiotics until completely gone. You have had your 1st dose here through the IV, he can take your next dose 1st thing in the morning. Prescription was printed today so if your regular pharmacy is closed can take it to a different pharmacy. Please return for fevers, increasing chest pain, shortness of breath, redness, swelling, purulent discharge or other new or concerning changes, new swelling of your arm, numbness or tingling or color changes. Prescriptions: New clindamycin HCl 300 mg capsule 300 mg PO QID Qty: 40 0RF No Action Estring 2 mg (7.5 mcg /24 hour) ring 1 vag ring vaginal [id number] Qty: 1 3RF Rx Instructions: 1 ring in vagina every 3 months rizatriptan 10 mg tablet,disintegrating See Rx Instructions .ROUTE .COMPLEX Qty: 8 5RF Dose Instruction: TAKE 1 TAB ONCE NEEDED FOR MIGRAINE HEADACHE MAY REPEAT ONCE AFTER AT LEAST 2 HOURS MAX DOSE 2 IN 24 HOURS Rx Instructions: TAKE 1 TAB ONCE NEEDED FOR MIGRAINE HEADACHE MAY REPEAT ONCE AFTER AT LEAST 2 HOURS MAX DOSE 2 IN 24 HOURS estradiol 0.075 mg/24 hr patch semiweekly See Rx Instructions .ROUTE .COMPLEX Qty: 8 3RF Dose Instruction: APPLY 1 PATCH FOR 3 DAYS ALTERNATING WITH 1 PATCH FOR 4 DAYS EACH WEEK FOR 3 WEEKS PER 4 WEEKS CYCLE Rx Instructions: APPLY 1 PATCH FOR 3 DAYS ALTERNATING WITH 1 PATCH FOR 4 DAYS EACH WEEK FOR 3 WEEKS PER 4 WEEKS CYCLE Referrals: Berny Cruz MD [Primary Care Provider] - Visit Report Forms: Patient Portal/API
--- NOTE | 2022-02-19 16:54 | DI.CT.S_ITS ---
PROCEDURE: CT ANGIO CHEST PE PROTOCOL INDICATIONS: port placed last week, redness/swelling @ site, chest pain TECHNIQUE: After the administration of intravenous contrast, 2 mm thick sections acquired from the pulmonary apices to the posterior costophrenic angles. 3-dimensional maximum intensity projection (MIP) coronal and sagittal reformats were then acquired through the thorax. For radiation dose reduction, the following was used: automated exposure control, adjustment of mA and/or kV according to patient size. COMPARISON: [facility], CT, CT ANGIO CHEST PE PROTOCOL, 11/30/2018, 21:29. FINDINGS: Image quality: Excellent. Right chest wall chest port with tip in the superior cavoatrial junction. Mild surrounding inflammatory changes adjacent chest port without abscess organized fluid collection identified. Surgical clips along the bilateral chest trejo. Pulmonary arteries: Pulmonary arteries are normal in size, and demonstrate no intraluminal filling defects to suggest central pulmonary embolism. Lungs and pleura: Lungs are clear. No pleural effusions or pneumothorax. Central and peripheral airways are patent. Mediastinum: Heart size is normal, without pericardial effusion. No mediastinal or hilar adenopathy. Thoracic aorta is normal in caliber and enhancement. Esophagus is normal in caliber, without hiatal hernia. Bones and chest wall: No suspicious bony lesions. Ribs and thoracic spine appear intact throughout. Thyroid gland is normal. No axillary or supraclavicular adenopathy. Abdomen: Visualized upper abdominal solid organs appear normal in the early arterial phase of enhancement. IMPRESSION: Start numbering Dictated by: Eduardo Stevenson M.D. on 02/19/2022 at 16:28 Approved by: Eduardo Stevenson M.D. on 02/19/2022 at 16:37
[2022-02-19 17:16] LABS: Add Manual Diff / Slide Review NO; Basophils Absolute Auto 0 /uL (0-100); Basophils Percent Auto 0.8 % (0-2); Eosinophils Absolute Auto 100 /uL (0-450); Eosinophils Percent Auto 1.9 % (2-4); Hematocrit 39.5 % (36-46); Hemoglobin 13.3 g/dL (12.0-16.0); Lymphocytes Absolute Auto 1200 /uL (1100-4500); Lymphocytes Percent Auto 27.1 % (25-40); Mean Corpuscular HGB Conc 33.7 % (30-36); Mean Corpuscular Hemoglobin 28.6 PG (26-34); Mean Corpuscular Volume 84.8 fL (80-100); Monocytes Absolute Auto 100 /uL (0-900); Monocytes Percent Auto 3.2 % (3-14); Neutrophils Absolute Auto 2900 /uL (1500-7000); Platelet Count 276 X10^3/uL (150-400); Red Blood Cell Count 4.65 X10^6/uL (4.0-5.2); Red Cell Distribution Width 14.8 % (11.6-14.8); White Blood Cell Count 4.4 X10^3/uL (4.5-11.0)
[2022-02-19] MEDS: CLINDAMYCIN 900 MG/50 ML PIGGYBACK 50 MG IV (17:20)
[2022-02-19 17:25] LABS: PTT Partial Thromboplastin Tim 34 SECONDS (26-36); Prothrombin Time 11.5 SECONDS (10.1-12.7)
[2022-02-19 17:27] LABS: Alanine Aminotransferase 15 IU/L (<35); Albumin 4.3 g/dL (3.5-5.0); Albumin Globulin Ratio 1.2 (1.0-2.8); Alkaline Phosphatase 59 U/L (38-126); Aspartate Aminotransferase 28 IU/L (14-36); BUN Creatinine Ratio 10.9 (6-22); Bilirubin Total 1.3 mg/dL (0.2-1.3); Blood Urea Nitrogen 12 mg/dL (7-17); Calcium 8.8 mg/dL (8.4-10.2); Carbon Dioxide 28 mmol/L (22-32); Chloride 102 mmol/L (98-107); Creatine Kinase 74 U/L (30-135); Estimated Glomerular Filt Rate > 60 mL/min (>60); Globulin 3.6 g/dL (1.7-4.1); Glucose 98 mg/dL (70-100); HEMOLYSIS 27 (0-50); Lactate (Lactic Acid) 0.8 mmol/L (0.7-2.1); Potassium 4.5 mmol/L (3.4-5.1); Sodium 135 mmol/L (137-145); Total Protein 7.9 g/dL (6.3-8.2)
[2022-02-19 17:39] LABS: Troponin I < 0.012 ng/mL (0.01-0.034)
[2022-02-19 17:44] LABS: Procalcitonin < 0.03 ng/mL (<0.5)
[2022-02-19] MEDS: CLINDAMYCIN 150 MG CAPSULE 300 MG PO (18:45)
== END 2022-02-19 18:47 | disposition home or self-care (01) ==
PROVIDERS: Emergency Provider Emergency Medicine; PCP Family Medicine
DX: L03.313 Cellulitis of chest wall (principal); Z95.828 Presence of other vascular implants and grafts
CPT/HCPCS: 36415; 71275; 80053; 82550; 83605; 84145; 84484; 85025; 85610; 85730; 87040; 96365; 99284; Q9967

== ENCOUNTER 2022-02-22 22:38 | Inpatient (IN) | payer OTHER, SELFPAY ==
[2022-02-22 22:40] VITALS: BP 141/81; PULSE 85; RESP 16; TEMP 36.5; O2SAT 98; BMI 26.6
[2022-02-22 22:43] VITALS: PULSE 81; O2SAT 99
[2022-02-22 22:44] VITALS: BP 141/81; PULSE 85; O2SAT 98
--- NOTE | 2022-02-22 22:49 | DI.US.S_ITS ---
PROCEDURE: US PERIPH VENOUS UP EXTREM RT INDICATIONS: PAIN, EDEMA 1 WEEK POST PORT PLACEMENT TECHNIQUE: Real-time imaging, as well as color and pulse Doppler interrogation, was performed of the right upper extremity deep veins from the inferior neck to the antecubital fossa. COMPARISON: None. FINDINGS: The internal jugular vein, visualized portions of the subclavian vein, axillary, and brachial veins are free of intraluminal thrombus. Where physically possible, the veins are normally compressible. Color and pulse Doppler demonstrate normal intraluminal flow, with expected phasicity and pulsatility. Additional scanning of the cephalic and basilic veins of the superficial system demonstrate normal compressibility, without thrombus. IMPRESSION: 1. No evidence of deep venous thrombosis in the right upper extremity. Dictated by: Josias Alfonso M.D. on 02/23/2022 at 0:50 Approved by: Josias Alfonso M.D. on 02/23/2022 at 0:51
[2022-02-22 23:00] VITALS: PULSE 72; O2SAT 99
[2022-02-22 23:21] LABS: Add Manual Diff / Slide Review NO; Basophils Absolute Auto 100 /uL (0-100); Basophils Percent Auto 0.7 % (0-2); Eosinophils Absolute Auto 300 /uL (0-450); Eosinophils Percent Auto 3.9 % (2-4); Hematocrit 35.5 % (36-46); Lymphocytes Absolute Auto 1500 /uL (1100-4500); Lymphocytes Percent Auto 22.7 % (25-40); Mean Corpuscular HGB Conc 33.8 % (30-36); Mean Corpuscular Hemoglobin 28.6 PG (26-34); Mean Corpuscular Volume 84.6 fL (80-100); Monocytes Absolute Auto 200 /uL (0-900); Monocytes Percent Auto 3.5 % (3-14); Neutrophils Absolute Auto 4600 /uL (1500-7000); Neutrophils Percent Auto 69.2 % (50-75); Platelet Count 294 X10^3/uL (150-400); White Blood Cell Count 6.7 X10^3/uL (4.5-11.0)
[2022-02-22 23:28] LABS: Alanine Aminotransferase 17 IU/L (<35); Albumin 4.3 g/dL (3.5-5.0); Albumin Globulin Ratio 1.2 (1.0-2.8); Alkaline Phosphatase 64 U/L (38-126); Aspartate Aminotransferase 24 IU/L (14-36); BUN Creatinine Ratio 17.8 (6-22); Bilirubin Total 0.5 mg/dL (0.2-1.3); Blood Urea Nitrogen 16 mg/dL (7-17); C-Reactive Protein Quant < 0.5 mg/dL (<1.0); Carbon Dioxide 31 mmol/L (22-32); Chloride 100 mmol/L (98-107); Estimated Glomerular Filt Rate > 60 mL/min (>60); Globulin 3.6 g/dL (1.7-4.1); Glucose 105 mg/dL (70-100); HEMOLYSIS < 15 (0-50); Potassium 3.6 mmol/L (3.4-5.1); Sodium 138 mmol/L (137-145); Total Protein 7.9 g/dL (6.3-8.2)
--- NOTE | 2022-02-22 23:57 | ED.WOUNDLAC ---
HPI - Wound/Laceration General Chief Complaint: Wound/Laceration Stated Complaint: Cellulitis on newly placed port Time Seen by Provider: 02/22/22 22:48 Source: patient Mode of arrival: Ambulatory History of Present Illness HPI narrative: 41-year-old female nonsmoker with history of triple negative breast cancer managed by the [facility] a presents at their request for evaluation of what appears to be an infection at the port site. She states that she had the port placed 1 week ago at the [facility] and started noticing some overlying erythema on Sunday but then presented here on Sunday when there is notable surrounding erythema. She had a very thorough evaluation including CT angiogram without any significant finding. She was given an initial dose of clindamycin through the IV and then has been taking clindamycin orally ever since. She is been in close contact with the [facility] ascending multiple pictures regarding her lack of improvement and was sent here tonight for further evaluation. She denies any systemic findings such as dizziness, weakness or lightheadedness. She has no chest pain or shortness of breath. She denies any fever or shaking chills. She does have some pain on the right side of her chest and neck that goes into right arm. She states that this has been present for some time and it is unclear if this is new or just an ongoing thing Related Data Previous Rx's Medication Instructions Recorded estradiol 2 mg (7.5 mcg/24 hour) 1 vag ring vaginal [id number] #1 ea 04/25/21 vaginal ring (Estring) rizatriptan 10 mg disintegrating See Rx Instructions .Route 09/12/21 tablet .COMPLEX #8 tabs estradiol 0.075 mg/24 hr See Rx Instructions .Route 01/02/22 semiweekly transdermal patch .COMPLEX #8 patches clindamycin HCl 300 mg capsule 300 mg PO QID #40 caps 02/19/22 Allergies Allergy/AdvReac Type Severity Reaction Status Date / Time amoxicillin [AMOXICILLIN] Allergy Unknown RASH Verified 02/22/22 23:00 Review of Systems Review of Systems Narrative: GENERAL: Denies chills, fatigue, malaise, fever, sweats. HEENT: Denies sinus pain, ear pain, sore throat, difficulty swallowing, dizziness. RESPIRATORY: Denies dyspnea, cough, wheezing, hemoptysis, sputum. CARDIOVASCULAR: Denies chest pain, palpitations, orthopnea, edema, GASTROINTESTINAL: Denies nausea, vomiting, abdominal pain, diarrhea, constipation, melena. : Denies dysuria, frequency, incontinence, hematuria, urinary retention. MUSCULOSKELETAL: denies weakness, joint pain, or bony pain SKIN: See HPI NEUROLOGIC: Denies weakness, headache, numbness, change in speech, confusion, seizures, incoordination. PSYCHIATRIC: No concerning psychosocial issues. 12 point review of systems is negative except for those stated above Patient History Medical History BRCA positive Migraines Surgical History Anesthesia History of prophylactic mastectomy of both breasts (06/19/18) Hx of breast reconstruction (11/27/18) Status post appendectomy Status post knee surgery Status post knee surgery Family History Father Age: 64 Colon polyps Social History household members: spouse Smoking Status: Never smoker Smoking Status: Never smoker alcohol intake frequency: 0-2 drinks per day Substance Use Type: does not use Exam Narrative Exam Narrative: GENERAL: [41] year old patient appears stated age. Well-developed patient, in mild distress. HEAD: Atraumatic. Normocephalic. EYES: Pupils equal round and reactive. Extraocular motions intact. No scleral icterus. No injection or drainage. ENT: Nose without bleeding, purulent drainage. Throat without erythema, tonsillar hypertrophy or exudate. Airway patent. NECK: Trachea midline. Non tender CARDIOVASCULAR: Regular rate and rhythm without murmurs, gallops, or rubs. RESPIRATORY: Clear to auscultation. Breath sounds equal bilaterally. No wheezes, rales, or rhonchi. GASTROINTESTINAL: Abdomen soft, non-tender, nondistended. EXTREMITIES: No edema or joint tenderness. BACK: Nontender without deformity or crepitance. No flank tenderness. NEURO: AOx3. SKIN: 4 x 8 cm area of erythema with induration overlying both the incision site and the access point for her recently placed port. Initial Vital Signs Initial Vital Signs: Vital Signs Temperature 97.7 F 02/22/22 22:40 Pulse Rate 85 02/22/22 22:40 Respiratory Rate 16 02/22/22 22:40 Blood Pressure 141/81 H 02/22/22 22:40 Pulse Oximetry 98 02/22/22 22:40 Oxygen Delivery Method 02/22/22 22:40 Course Orders Ordered: ED Orders 02/22/22 22:49 US periph venous up extrem rt Stat 02/22/22 23:00 C-Reactive Protein Quant Stat Complete Blood Count AUTO DIFF Stat Comprehensive Metabolic Panel Stat Lactate (Lactic Acid) Stat 02/22/22 23:19 Blood Culture Stat 02/23/22 01:13 COVID19 -Nasal RAPID/Pre-Proc Stat Discontinued Medications Vancomycin HCl/Dextrose (Vancomycin) 1,500 mg in 300 mls @ 200 mls/hr IV NOW ONE Stop: 02/23/22 01:31 Last Admin: 02/23/22 00:35 Dose: 200 mls/hr Documented By: HUMBLE Consultations Consultation #1: Discussed with hematology/oncology at the [facility]. After reviewing the case they recommend the port be removed. They ask for to be managed locally if possible given they are extremely high census Consultation #2: Discussed with Dr. Gonzalez, after reviewing the history and physical as well as recommendations by the [facility] he agrees to bring patient in on his service Vital Signs Vital signs: Vital Signs - 8 hr 02/22/22 22:40 02/22/22 22:43 02/22/22 22:44 Temperature 97.7 F Pulse Rate 85 81 Respiratory Rate 16 Blood Pressure 141/81 H 141/81 H Pulse Oximetry 98 99 Oxygen Delivery Method Room Air 02/22/22 22:44 02/22/22 23:00 Temperature Pulse Rate 85 72 Respiratory Rate Blood Pressure Pulse Oximetry 98 99 Oxygen Delivery Method MDM - Wound/Laceration Lab Data Result diagrams: 02/22/22 23:00 02/22/22 23:00 Labs: Lab Results 02/22/22 02/22/22 02/22/22 Range/Units 23:00 23:00 23:00 WBC 6.7 (4.5-11.0) X10^3/uL RBC 4.20 (4.0-5.2) X10^6/uL Hgb 12.0 (12.0-16.0) g/dL Hct 35.5 L (36-46) % MCV 84.6 (80-100) fL MCH 28.6 (26-34) PG MCHC 33.8 (30-36) % RDW 15.0 H (11.6-14.8) % Plt Count 294 (150-400) X10^3/uL Neut % (Auto) 69.2 (50-75) % Lymph % (Auto) 22.7 L (25-40) % [place] % (Auto) 3.5 (3-14) % Eos % (Auto) 3.9 (2-4) % Baso % (Auto) 0.7 (0-2) % Neut # (Auto) 4600 (5206-4829) /uL Lymph # (Auto) 1500 (5607-5022) /uL [place] # (Auto) 200 (0-900) /uL Eos # (Auto) 300 (0-450) /uL Baso # (Auto) 100 (0-100) /uL Sodium 138 (137-145) mmol/L Potassium 3.6 (3.4-5.1) mmol/L Chloride 100 (98-107) mmol/L Carbon Dioxide 31 (22-32) mmol/L BUN 16 (7-17) mg/dL Creatinine 0.90 (0.52-1.04) mg/dL Estimated GFR > 60 (>60) mL/min BUN/Creatinine Ratio 17.8 (6-22) Glucose 105 H (70-100) mg/dL Lactate 1.0 (0.7-2.1) mmol/L Calcium 9.0 (8.4-10.2) mg/dL Total Bilirubin 0.5 (0.2-1.3) mg/dL AST 24 (14-36) IU/L ALT 17 (<35) IU/L Alkaline Phosphatase 64 (38-126) U/L C-Reactive Protein < 0.5 (<1.0) mg/dL Total Protein 7.9 (6.3-8.2) g/dL Albumin 4.3 (3.5-5.0) g/dL Globulin 3.6 (1.7-4.1) g/dL Albumin/Globulin Ratio 1.2 (1.0-2.8) Discharge Plan Departure Patient Disposition: Admitted as Observation Admit Date/Time: 02/23/22 01:41 Admit Provider: Dano Gonzalez
[2022-02-23] VITALS (9 sets, daily range): BP systolic 98–120; BP diastolic 53–81; PULSE 62–79; RESP 16–21; TEMP 36–37.2; O2SAT 97–100; BMI 26.6
[2022-02-23] MEDS: VANCOMYCIN 1,500 MG/300 ML PIGGYBACK 200 MG IV (00:35)
[2022-02-23 02:22] LABS: COVID19 -Nasal RAPID Negative (Negative)
--- NOTE | 2022-02-23 04:29 | PC.NURSE ---
Right chest port incision.
[2022-02-23] MEDS: SODIUM CHLORIDE 0.9% 1,000 ML 125 ML IV (04:30)
--- NOTE | 2022-02-23 04:30 | PC.ADMIT ---
[email or web address] [id number] Admission Note: The patient,Teresita Russell,41 y/o, was given written information regarding hospital policies, unit procedures and contact persons. Patient's smoking status: Never smoker. Vital Signs - 8 hr 02/22/22 22:40 02/22/22 22:43 02/22/22 22:44 Temperature 97.7 F Pulse Rate 85 81 Respiratory Rate 16 Blood Pressure 141/81 H 141/81 H Pulse Oximetry 98 99 Oxygen Delivery Method Room Air 02/22/22 22:44 02/22/22 23:00 02/23/22 02:30 Temperature Pulse Rate 85 72 77 Respiratory Rate 20 Blood Pressure 101/62 Pulse Oximetry 98 99 99 Oxygen Delivery Method Room Air 02/23/22 02:40 02/23/22 02:04 Temperature 98.3 F Pulse Rate 72 Respiratory Rate 18 Blood Pressure 120/70 Pulse Oximetry 99 Oxygen Delivery Method Room Air
--- NOTE | 2022-02-23 04:30 | PC.NURSE ---
Right chest port incision.
[2022-02-23] MEDS: cefTRIAXone 1,000 MG VIAL 1000 MG (05:02)
--- NOTE | 2022-02-23 06:31 | PC.NURSE ---
End of shift note. Care of patient from . Patient AAOX4, denies pain. Independently ambulates and turns self in bed. Can have clears until noon, then NPO for surgery. Plan is to have Right infected chest report removed by Dr. Gonzalez.
--- NOTE | 2022-02-23 10:54 | CM.DANOTE ---
Addendum entered by Enma Bishop R.N. 02/23/22 15:04: DCP Cont: Pt had port removed this afternoon by Dr. Enriquez. Pt stable for discharge. Pt to discharge home on oral abx. Pt spouse to pick her up from the hospital in [place]. Enma Bishop RN/ROROP Original Note: DCP Assessment: Payor: Beatriz PCP: MD Nancy Pt presented to the ER for complaints of infected port-a-cath. Pt has a history of triple negative breast cancer and gets her care @ [facility]. Pt just recently had a new port-a-cath placed down @ [facility] and has received one round of chemotherapy through her port. Pt was given clindamycin through the IV and then took clindamycin orally since. Pt was admitted for further evaluation and management of diagnosis and removal of PAC. DCP met with pt this morning to discuss discharge needs. Pt sitting up in bed. Pt is NPO. DCP introduced herself and role. Pt states that she lives with her and kids in [place] and is independent at baseline. Pt still drives POV. Pt states that she gets her cancer treatment @ [facility]. Pt states that she is triple negative BRCA positive. Pt expressed anxiety regarding her delay in cancer treatment due to the infected port. Pt states that she is not going to be working during her cancer treatments and has older children who are able to help her when needed. Pt denies any resources at this time. DCP does not identify needs. Whiteboard updated and instructed to call. Pt thankful for discussion. P: Pt to have removal of port this afternoon. Pt currently on IV abx. Culture results pending. DCP to await further plan of care following port removal. Once medically stable and ready for discharge, pt to discharge home via POV. Enma Bishop RN/MARIEL Discharge Planning/Care Management CM Discharge Assessment Start: 02/23/22 10:53 Freq: Status: Active Protocol: Document 02/23/22 10:53 ANEUDY (Rec: 02/23/22 10:54 ANEUDY [id number]) Discharge Planning Assessment Assigned Manager Freelance Enma Bishop RN/MARIEL Advance Directives? No History Provided By Patient Prior Living Arrangements House Household Members spouse Type of transporation used prior to Drives own vehicle admit Independent with ADL's Yes Is patient alert and oriented? Yes Caregiver for Another No Discharge Plan Home Transportation Arrangement Spouse POV Referrals Initiated None needed Additional Comment At this time. Whiteboard Updated in Patient Room with Yes name and ext. # of Manager Freelance Comment Instructed to call Review Status In Process Please Provide Date Initial DC 02/23/22 Assessment Was Performed Next Review Type Continued Stay Review
[2022-02-23] MEDS: LACTATED RINGERS 1,000 ML 100 ML IV ×2 (11:15→12:27)
--- NOTE | 2022-02-23 12:21 | P.HP_ITS ---
History of Present Illness History of Present Illness Date Patient Seen: 02/23/22 Time Patient Seen: 12:21 Chief complaint: Cellulitis on newly placed port Narrative: Treated for stage 3, triple negative breast cancer that occurred even after bilateral mastectomy and oophorectomy. Port became tender and red this week, antibiotics given, but infection continued. Patient History Medical History BRCA positive Migraines Surgical History Anesthesia History of prophylactic mastectomy of both breasts (06/19/18) Hx of breast reconstruction (11/27/18) Status post appendectomy Status post knee surgery Status post knee surgery Family & Social History Family History Father Age: 64 Colon polyps Social History: household members spouse Prior Living Arrangements House Safety & Behavioral: Feels Safe in Current Yes Environment Tobacco & Substance use: Smoking Status Never smoker alcohol intake frequency holiday/special occasion Substance Use Type does not use Meds Home Medications and Allergies Home Medications Medication Instructions Recorded Confirmed Type estradiol 2 mg (7.5 mcg/24 hour) 1 vag ring vaginal [id number] #1 ea 04/25/2102/06 Rx vaginal ring (Estring) rizatriptan 10 mg disintegrating See Rx Instructions .Route 09/12/21 02/23/22 Rx tablet .COMPLEX #8 tabs estradiol 0.075 mg/24 hr See Rx Instructions .Route 01/02/22 02/23/22 Rx semiweekly transdermal patch .COMPLEX #8 patches clindamycin HCl 300 mg capsule 300 mg PO QID #40 caps 02/19/22 02/23/22 Rx Allergies Allergy/AdvReac Type Severity Reaction Status Date / Time amoxicillin [AMOXICILLIN] Allergy Unknown RASH Verified 02/22/22 23:00 Review of Systems Review of Systems ROS: Yes All systems reviewed with the patient and are negative except as otherwise documented Exam Vital Signs (past 8 hours): - 02/23/22 06:00 02/23/22 08:50 02/23/22 11:50 Temperature 97.0 F L 98.5 F Pulse Rate 79 69 Respiratory Rate 16 21 Blood Pressure 98/53 L 103/72 Pulse Oximetry 98 97 Oxygen Delivery Method Room Air Oxygen Flow Rate 0 Oxygen Delivery Method Room Air Oxygen Flow Rate 0 Narrative Exam Narrative: infected port a cath resistent to po antibiotic of Clindamycin. Getting treatment at [facility] where the port was put in. Recommend leave po rt out 7-10 days before another central line place. Blood cultures are negative so far, an new set was draw last night. Const General: cooperative and healthy appearing Nutritional Appearance: average body habitus Orientation: alert and oriented x3 HENMT Head: normal to inspection, normocephalic and atraumatic Eyes General: appearance normal, both eyes and all related structures Sclera: sclerae normal Neck Neck: normal visual inspection and trachea midline Chest Other: bulging and redness around right subclavian port site Resp Effort & Inspection: normal respiratory effort and able to speak in complete sentences Cardio Rate: regular rate Rhythm: regular rhythm GI Inspection: normal to inspection Palpation: soft Skin General: turgor normal Neuro General: patient alert, patient awake and patient oriented x3 Extrem General: full ROM Psych Appearance: grossly normal and well kempt Judgment: judgment good Objective Labs Result Diagrams: 02/22/22 23:00 02/22/22 23:00 Labs: Laboratory Results - last 24 hr 02/22/22 02/22/22 02/22/22 23:00 23:00 23:00 WBC 6.7 RBC 4.20 Hgb 12.0 Hct 35.5 L MCV 84.6 MCH 28.6 MCHC 33.8 RDW 15.0 H Plt Count 294 Neut % (Auto) 69.2 Lymph % (Auto) 22.7 L [place] % (Auto) 3.5 Eos % (Auto) 3.9 Baso % (Auto) 0.7 Neut # (Auto) 4600 Lymph # (Auto) 1500 [place] # (Auto) 200 Eos # (Auto) 300 Baso # (Auto) 100 Sodium 138 Potassium 3.6 Chloride 100 Carbon Dioxide 31 BUN 16 Creatinine 0.90 Estimated GFR > 60 BUN/Creatinine Ratio 17.8 Glucose 105 H Lactate 1.0 Calcium 9.0 Total Bilirubin 0.5 AST 24 ALT 17 Alkaline Phosphatase 64 C-Reactive Protein < 0.5 Total Protein 7.9 Albumin 4.3 Globulin 3.6 Albumin/Globulin Ratio 1.2 SARS-CoV-2 (PCR) 02/23/22 01:42 WBC RBC Hgb Hct MCV MCH MCHC RDW Plt Count Neut % (Auto) Lymph % (Auto) [place] % (Auto) Eos % (Auto) Baso % (Auto) Neut # (Auto) Lymph # (Auto) [place] # (Auto) Eos # (Auto) Baso # (Auto) Sodium Potassium Chloride Carbon Dioxide BUN Creatinine Estimated GFR BUN/Creatinine Ratio Glucose Lactate Calcium Total Bilirubin AST ALT Alkaline Phosphatase C-Reactive Protein Total Protein Albumin Globulin Albumin/Globulin Ratio SARS-CoV-2 (PCR) Negative Assessment & Plan Assessment & Plan narrative: infected right subclavian port site. Plan: removal of port COVID-19 COVID-19 status: Negative Time Spent With Patient Time with patient: less than 30 minutes Critical Care time: I spent a total of [] minutes of critical care time on this patient's care today; this time is exclusive of procedural time.
--- NOTE | 2022-02-23 12:59 | SUR.OPER ---
Supine on padded OR bed, head on pillow, arms secured on padded arm boards at <90 degrees abduction, legs uncrossed, safety belt at thigh, tape over blanket over lower legs.
[2022-02-23] MEDS: BUPIVACAINE 0.25% (PF) VIAL 7 ML SUBCUT (13:06)
--- NOTE | 2022-02-23 13:31 | PC.NURSE ---
pt returned to room from PACU @ 1315 AAOx4, denies pain or discomfort. dressing to upper chest dry and intact. VSS
[2022-02-23] MEDS: DOXYCYCLINE HYCLATE 100 MG TABLET PO (13:44)
--- NOTE | 2022-02-23 14:25 | PM.OP.1 ---
Operative Date/Time/Diagnoses Date of procedure: 02/23/22 Time of procedure: 12:30 Pre-op diagnosis: infected port Post-op diagnosis: same Procedure & Clinicians Procedure: removal of right subclavian port Same procedure as scheduled: Yes Indications: infection Surgeon: Mariaelena Enriquez Click Yes if Unassisted: Yes Anesthesia Type: Sedation Operative Notes Findings: no daniel pus. minimal incorporation of port Closure Type: not applicable Specimen(s): other (cultures and cath tip) Estimated Blood Loss (mL): 10 Blood products transfused: none Procedure in detail: preop dx: infection of venous port Postop dx: same Operative procedure: removal of port Surgeon: Vicki Enriquez MD Anesthetic: sedation and local Findings: no daniel pus Procedure: Patient placed in supine position, prepped and draped in sterile fashion to expose right upper chest. Local was injected and the previous incision was reopened and port was removed. No stay sutures identified. Minimal venous bleeding with removal of catheter from the vein. Sterile 2x2 roll gauzed used to pack for bleeding purposes. Medipore tape placed due to adhesive allergies. Tip of port and fluid surrounding port were sent for culture. Patient was awaken and taken to day surgery in stable condition with needle, instrument and sponge counts correct. blood loss: 10 ml Specimen: periport fluid, cath tip Complications: none Post-operative Condition: stable Disposition: same day surgery
--- NOTE | 2022-02-23 14:40 | P.DS_ITS ---
History of Present Illness History of Present Illness Date Patient Seen: 02/23/22 Time Patient Seen: 14:40 Chief complaint: Cellulitis on newly placed port Narrative: Treated for stage 3, triple negative breast cancer that occurred even after bilateral mastectomy and oophorectomy. Port became tender and red this week, antibiotics given, but infection continued. Discharge Providers Provider Date of admission: 02/23/22 01:41 Discharge Date: 02/23/22 Primary care physician: Berny Cruz MD Discharge provider: Mariaelena Enriquez MD Summary Status at Discharge Cognitive/behavioral status at discharge: at baseline, oriented Functional status at discharge: independent ambulation Overall status at discharge: patient is progressing back to baseline Time Spent with Patient Time spent: Less than 30 minutes Exam Vital Signs (past 8 hours): - 02/23/22 08:50 02/23/22 11:50 02/23/22 12:28 Temperature 98.5 F 99 F Pulse Rate 69 68 Respiratory Rate 21 16 Blood Pressure 103/72 100/73 Pulse Oximetry 97 100 Oxygen Delivery Method Room Air Room Air Oxygen Flow Rate 0 02/23/22 13:10 02/23/22 13:25 02/23/22 13:50 Temperature 98.2 F 96.8 F L 98.5 F Pulse Rate 62 71 65 Respiratory Rate 16 17 17 Blood Pressure 110/73 111/68 103/67 Pulse Oximetry 100 99 100 Oxygen Delivery Method Oxygen Flow Rate 0 0 0 Oxygen Delivery Method Room Air Oxygen Flow Rate 0 Narrative Exam Narrative: wound left open with packing. Const General: cooperative and healthy appearing Objective Labs Result Diagrams: 02/22/22 23:00 02/22/22 23:00 Labs: Laboratory Results - last 24 hr 02/22/22 02/22/22 02/22/22 23:00 23:00 23:00 WBC 6.7 RBC 4.20 Hgb 12.0 Hct 35.5 L MCV 84.6 MCH 28.6 MCHC 33.8 RDW 15.0 H Plt Count 294 Neut % (Auto) 69.2 Lymph % (Auto) 22.7 L [place] % (Auto) 3.5 Eos % (Auto) 3.9 Baso % (Auto) 0.7 Neut # (Auto) 4600 Lymph # (Auto) 1500 [place] # (Auto) 200 Eos # (Auto) 300 Baso # (Auto) 100 Sodium 138 Potassium 3.6 Chloride 100 Carbon Dioxide 31 BUN 16 Creatinine 0.90 Estimated GFR > 60 BUN/Creatinine Ratio 17.8 Glucose 105 H Lactate 1.0 Calcium 9.0 Total Bilirubin 0.5 AST 24 ALT 17 Alkaline Phosphatase 64 C-Reactive Protein < 0.5 Total Protein 7.9 Albumin 4.3 Globulin 3.6 Albumin/Globulin Ratio 1.2 SARS-CoV-2 (PCR) 02/23/22 01:42 WBC RBC Hgb Hct MCV MCH MCHC RDW Plt Count Neut % (Auto) Lymph % (Auto) [place] % (Auto) Eos % (Auto) Baso % (Auto) Neut # (Auto) Lymph # (Auto) [place] # (Auto) Eos # (Auto) Baso # (Auto) Sodium Potassium Chloride Carbon Dioxide BUN Creatinine Estimated GFR BUN/Creatinine Ratio Glucose Lactate Calcium Total Bilirubin AST ALT Alkaline Phosphatase C-Reactive Protein Total Protein Albumin Globulin Albumin/Globulin Ratio SARS-CoV-2 (PCR) Negative PFSH Medical History BRCA positive Migraines Surgical History Anesthesia History of prophylactic mastectomy of both breasts (06/19/18) Hx of breast reconstruction (11/27/18) Status post appendectomy Status post knee surgery Status post knee surgery Family History Father Age: 64 Colon polyps Social History household members: spouse Smoking Status: Never smoker alcohol intake: current Discharge Assessment & Plan Assessment and Plan Assessment: infected right subclavian port removed Plan of Treatment: Home with 5 days of doxycyline. Will need replacement port after 1-2 weeks Discharge Plan Discharge Plan Patient Disposition: Home Provider Discharge Comment: ice pack to shoulder, reinforce dressing as needed. May remove packing tomorrow and then dry dressing as needed. May shower with wound open dilution is the solution. Take the doxycycline instead of the clindamycin for 5 days. Discharge orders & Medications Prescriptions: New doxycycline hyclate 100 mg Tablet 100 mg PO BID Qty: 10 0RF Continued Estring 2 mg (7.5 mcg /24 hour) ring 1 vag ring vaginal [id number] Qty: 1 3RF Rx Instructions: 1 ring in vagina every 3 months rickieiptan 10 mg tablet,disintegrating See Rx Instructions .ROUTE .COMPLEX Qty: 8 5RF Dose Instruction: TAKE 1 TAB ONCE NEEDED FOR MIGRAINE HEADACHE MAY REPEAT ONCE AFTER AT LEAST 2 HOURS MAX DOSE 2 IN 24 HOURS Rx Instructions: TAKE 1 TAB ONCE NEEDED FOR MIGRAINE HEADACHE MAY REPEAT ONCE AFTER AT LEAST 2 HOURS MAX DOSE 2 IN 24 HOURS estradiol 0.075 mg/24 hr patch semiweekly See Rx Instructions .ROUTE .COMPLEX Qty: 8 3RF Dose Instruction: APPLY 1 PATCH FOR 3 DAYS ALTERNATING WITH 1 PATCH FOR 4 DAYS EACH WEEK FOR 3 WEEKS PER 4 WEEKS CYCLE Rx Instructions: APPLY 1 PATCH FOR 3 DAYS ALTERNATING WITH 1 PATCH FOR 4 DAYS EACH WEEK FOR 3 WEEKS PER 4 WEEKS CYCLE Discontinued clindamycin HCl 300 mg capsule 300 mg PO QID Qty: 40 0RF Follow up/Referrals: Berny Cruz MD [Primary Care Provider] - Discharge Health Status Care Plan Goals: follow up at [facility] in 1-2 weeks or [facility] for replacement of port Diet/Activity/Treatments Diet: Diet as Tolerated Activity: no restrictions Skin/Wound/Dressing Care Report to your healthcare provider any signs of infection, such as:: chills, fever, increased pain and unusual drainage Dressing: dry dressing, shower with wound open Visit Report/Discharge Packet Instructions: [facility]: Wound Care Stand Alone Forms: Surgery Discharge Discharge Data Primary Care Provider: Berny Cruz
== END 2022-02-23 15:15 | disposition home or self-care (01) | DRG 315 ==
LOC: ED 22:48 → AC 02-23 01:46
PROVIDERS: Surgery; Admitting Provider Surgery; Emergency Provider Emergency Medicine; PCP Family Medicine; Referring Provider Emergency Medicine; Visit Provider Surgery
PROC: 0JPT0WZ Removal of Totally Implantable Vascular Access Device from Trunk Subcutaneous Tissue and Fascia, Open Approach (ICD-10-PCS; CPT 36590; principal; 2022-02-23 11:15)
DX: T80.212A Local infection due to central venous catheter, initial encounter (principal); C79.2 Secondary malignant neoplasm of skin; L03.313 Cellulitis of chest wall; Z85.3 Personal history of malignant neoplasm of breast
CPT/HCPCS: 36415; 36590; 80053; 83605; 85025; 86140; 87040; 87070; 87075; 87205; 87635; 93971; 99221; 99284; C9803; J0696; J2250; J3010; J3490

== ENCOUNTER 2022-03-28 04:12 | Emergency (ER) | payer OTHER, SELFPAY ==
[2022-02-23 02:04] VITALS: BMI 26.6
[2022-03-28 04:19] VITALS: BP 125/80; PULSE 84; RESP 16; TEMP 35.9; O2SAT 98
--- NOTE | 2022-03-28 04:42 | DI.CT.S_ITS ---
PROCEDURE: CT ANGIO NECK INDICATIONS: right sided pain breast ca TECHNIQUE: After the administration of intravenous contrast, 1.5 mm axial sections acquired from the aortic arch to the [place] of [place]. Maximum intensity projection (MIP) reformats were then performed. COMPARISON: None. FINDINGS: Image quality: Excellent. Carotid system: The great vessels demonstrate a conventional anatomy as they arise from the aortic arch. The origins of the common carotid arteries appear patent. The common carotid arteries demonstrate normal calibers and courses. The bifurcation regions appear normal bilaterally. The internal carotid arteries demonstrate normal caliber and course. Posterior circulation: The origins of the vertebral arteries appear patent. The more superior portions of the vertebral arteries demonstrate normal course and caliber. They join to form a normal appearing basilar artery. Soft tissues: Visualized neck soft tissues demonstrate no suspicious abnormalities. Thyroid gland is normal . Bones: No suspicious bony lesions. Visualized cervical spine appears normally aligned. IMPRESSION: Normal neck angiogram. No significant discrepancy with the evening or night nurse supervisor radiology preliminary report. Any quantitative stenosis measurements were performed using the NASCET criteria. Dictated by: Vargas Panda M.D. on 03/28/2022 at 8:19 Approved by: Vargas Panda M.D. on 03/28/2022 at 8:20
--- NOTE | 2022-03-28 04:42 | DI.CT.S_ITS ---
PROCEDURE: CT ANGIO CHEST PE PROTOCOL INDICATIONS: Breast ca with right sided pain TECHNIQUE: After the administration of intravenous contrast, 2 mm thick sections acquired from the pulmonary apices to the posterior costophrenic angles. 3-dimensional maximum intensity projection (MIP) coronal and sagittal reformats were then acquired through the thorax. For radiation dose reduction, the following was used: automated exposure control, adjustment of mA and/or kV according to patient size. COMPARISON: [facility], CT, CT ANGIO CHEST PE PROTOCOL, 02/19/2022, 17:03. FINDINGS: Image quality: Excellent. Pulmonary arteries: Pulmonary arteries are normal in size, and demonstrate no intraluminal filling defects to suggest central pulmonary embolism. Lungs and pleura: Lungs are clear. No pleural effusions or pneumothorax. Central and peripheral airways are patent. Mediastinum: Heart size is normal, without pericardial effusion. No mediastinal or hilar adenopathy. Thoracic aorta is normal in caliber and enhancement. Esophagus is normal in caliber, without hiatal hernia. Bones and chest wall: Mild skin thickening over the breasts. Surgical clips in breasts bilaterally. No suspicious bony lesions. Ribs and thoracic spine appear intact throughout. Thyroid gland is normal. No axillary or supraclavicular adenopathy. Abdomen: Visualized upper abdominal solid organs appear normal in the early arterial phase of enhancement. IMPRESSION: 1. No evidence for pulmonary embolism. 2. Mild skin thickening in over the breasts. 3. Small hiatal hernia. No significant discrepancy with the pediatric oncologist radiology preliminary report. Dictated by: Vargas Panda M.D. on 03/28/2022 at 7:52 Approved by: Vargas Panda M.D. on 03/28/2022 at 7:57
--- NOTE | 2022-03-28 04:42 | ED_ITS ---
HPI - Extremity Problem General Chief complaint: Extremity Problem,Nontraumatic Stated complaint: right side arm and neck pain and tingling Time Seen by Provider: 03/28/22 04:39 Source: patient Mode of arrival: Ambulatory History of Present Illness HPI Narrative: Patient is a 41-year-old female history of BRCA2 positive with prior prophyl actic mastectomy and oophorectomy with a port placed in January, which was subsequently removed on 02/23/2022 for infection. She is receiving chemotherapy in mostly followed by [facility] now called [facility] is presents today with right sided arm heaviness numbness tingling is an neck pain. She denies any swelling no redness is no weakness. She has no chest pain or shortness of breath. She says she has never quite felt like this before. She denies fever chills or cough. She denies any injury to her neck she is able to move it she feels like it is swollen but it is not obviously swollen. Seems to radiate down hand to his arm. Related Data Previous Rx's Medication Instructions Recorded estradiol 2 mg (7.5 mcg/24 hour) 1 vag ring vaginal [id number] #1 ea 04/25/21 vaginal ring (Estring) rizatriptan 10 mg disintegrating See Rx Instructions .Route 09/12/21 tablet .COMPLEX #8 tabs estradiol 0.075 mg/24 hr See Rx Instructions .Route 01/02/22 semiweekly transdermal patch .COMPLEX #8 patches doxycycline hyclate 100 mg tablet 100 mg PO BID #10 tabs 02/23/22 Allergies Allergy/AdvReac Type Severity Reaction Status Date / Time amoxicillin [AMOXICILLIN] Allergy Unknown RASH Verified 02/22/22 23:00 Review of Systems Review of Systems Narrative: GENERAL: Denies chills, fatigue, malaise, fever, sweats, travel HEENT: Denies sinus pain, ear pain, sore throat, difficulty swallowing, neck pain RESPIRATORY: Denies dyspnea, cough, wheezing, hemoptysis, sputum. CARDIOVASCULAR: Denies chest pain, palpitations, orthopnea, edema GASTROINTESTINAL: Denies nausea, vomiting, abdominal pain, diarrhea, constipation, melena. : Denies dysuria, frequency, incontinence, hematuria, urinary retention, flank pain. MUSCULOSKELETAL: Denies weakness, joint pain, or bony pain SKIN: No rash, no erythema, no pruritus NEUROLOGIC: Denies weakness, dizziness, headache, numbness, change in speech, confusion PSYCHIATRIC: No concerning psychosocial issues. 12 point review of systems is negative except for those stated above and HPI Patient History Medical History BRCA positive Migraines Surgical History Anesthesia History of prophylactic mastectomy of both breasts (06/19/18) Hx of breast reconstruction (11/27/18) Status post appendectomy Status post knee surgery Status post knee surgery Family History Father Age: 64 Colon polyps Social History household members: spouse Smoking Status: Never smoker alcohol intake: current Smoking Status: Never smoker alcohol intake frequency: holidays/special occasions only Substance Use Type: does not use Exam Initial Vital Signs Initial Vital Signs: Vital Signs Temperature 96.7 F L 03/28/22 04:19 Pulse Rate 84 03/28/22 04:19 Respiratory Rate 16 03/28/22 04:19 Blood Pressure 125/80 03/28/22 04:19 Pulse Oximetry 98 03/28/22 04:19 Oxygen Delivery Method 03/28/22 04:19 GENERAL: Pleasant 41-year-old and in no acute distress. HEENT: Head atraumatic,EOMI, pupils reactive, face symmetric, moist mucous membranes CARDIOVASCULAR: Regular rate and rhythm without murmurs, rubs or gallops. RESPIRATORY: Breath sounds equal bilaterally, no wheezes rales or rhonchi. ABDOMEN: Soft, nontender. Normoactive bowel sounds all 4 quadrants. No guarding or rebound. EXTREMITIES: Normal range of motion, no clubbing or edema. Neurovascularly intact NEUROLOGICAL: Alert and oriented x4.Normal gait and speech. Cranial nerves II through XII grossly intact. Good vevppz-eo-zahf, good osya-lz-lqrl, strength equal bilaterally, no dysarthria or aphasia, sensation in tact to soft touch bilaterally, no visual changes, no facial droop SKIN: Warm, dry, no laceration, no petechiae, no rashes or lesions. Course Orders Ordered: ED Orders 10/11/22 04:42 CT angio chest PE protocol Stat CT angio neck Stat EKG-12 Lead Stat 03/28/22 05:20 CBC Auto Diff [Complete Blood Count AUTO DIFF] Stat CMP [Comprehensive Metabolic Panel] Stat Troponin & CK Cardiac Panel Stat Vital Signs Vital signs: Vital Signs - 8 hr 03/28/22 04:19 Temperature 96.7 F L Pulse Rate 84 Respiratory Rate 16 Blood Pressure [Left Arm] 125/80 Pulse Oximetry 98 Oxygen Delivery Method Room Air MDM - Extremity (Nontraumatic) Lab Data Result diagrams: 03/28/22 05:20 03/28/22 05:20 Labs: Lab Results 03/28/22 03/28/22 Range/Units 05:20 05:20 WBC 2.9 L (4.5-11.0) X10^3/uL RBC 4.03 (4.0-5.2) X10^6/uL Hgb 11.6 L (12.0-16.0) g/dL Hct 34.5 L (36-46) % MCV 85.6 (80-100) fL MCH 28.8 (26-34) PG MCHC 33.6 (30-36) % RDW 16.2 H (11.6-14.8) % Plt Count 313 (150-400) X10^3/uL Neut % (Auto) 63.7 (50-75) % Lymph % (Auto) 29.8 (25-40) % [place] % (Auto) 4.0 (3-14) % Eos % (Auto) 1.4 L (2-4) % Baso % (Auto) 1.1 (0-2) % Neut # (Auto) 1900 (9412-8715) /uL Lymph # (Auto) 900 L (1292-7659) /uL [place] # (Auto) 100 (0-900) /uL Eos # (Auto) 0 (0-450) /uL Baso # (Auto) 0 (0-100) /uL Sodium 136 L (137-145) mmol/L Potassium 4.1 (3.4-5.1) mmol/L Chloride 99 (98-107) mmol/L Carbon Dioxide 28 (22-32) mmol/L BUN 13 (7-17) mg/dL Creatinine 0.79 (0.52-1.04) mg/dL Estimated GFR > 60 (>60) mL/min BUN/Creatinine Ratio 16.5 (6-22) Glucose 108 H (70-100) mg/dL Calcium 8.8 (8.4-10.2) mg/dL Total Bilirubin 1.2 (0.2-1.3) mg/dL AST 30 (14-36) IU/L ALT 35 H (<35) IU/L Alkaline Phosphatase 65 (38-126) U/L Total Creatine Kinase 41 (30-135) U/L CK-MB (CK-2) TNP CK-MB (CK-2) Rel Index TNP Troponin I < 0.012 (0.01-0.034) ng/mL Total Protein 7.4 (6.3-8.2) g/dL Albumin 4.1 (3.5-5.0) g/dL Globulin 3.3 (1.7-4.1) g/dL Albumin/Globulin Ratio 1.2 (1.0-2.8) Imaging Data CTA - brain/neck: Radiologist's Impression: Preliminary report normal CTA of the neck CT scan - chest: Radiologist's Impression: Preliminary report no pulmonary embolism aortic dissection or aneurysm. No pulmonary nodule or infiltrate ECG Data Interpretation: Normal sinus rhythm rate 73 NJ interval 130 QRS [address] changes no T- wave in MDM Narrative Medical decision making narrative: Patient is currently undergoing chemotherapy for breast cancer she is followed closely at [facility] presenting today with what she feels like is neck swelling I do not appreciate any obvious neck swelling on exam she has no airway difficulty. She feels like her his arm is numb and tingly she has no headache. She is hypoxic although his she did just have a port removed possible DVT versus PE. Fortunately CT angio neck and chest are negative. No sign of infection although she is mildly leukopenic. She sees her oncology team in 2 days. Vitals are stable at this time no indication for any further workup. She is offered pain medication however declines stating she only wanted to know if there was anything wrong. Discharge Plan Departure Patient Disposition: Home Clinical Impression: Acute neck pain Instructions: DI for Neck Pain Activity Restrictions/Additional Instructions: *You have been diagnosed with neck pain *What to do: At this time is unclear what is causing your neck pain or scans are negative. Please follow-up oncology team, it may are may not be related to chemo *Continue to take medications as directed *Follow up with your primary care provider in 2-3 days or call [phone] *Return to ER if you should have increase pain, numbness, tingling, weakness or any new, worsening or concerning symptoms Prescriptions: No Action Estring 2 mg (7.5 mcg /24 hour) ring 1 vag ring vaginal [id number] Qty: 1 3RF Rx Instructions: 1 ring in vagina every 3 months rizatriptan 10 mg tablet,disintegrating See Rx Instructions .ROUTE .COMPLEX Qty: 8 5RF Dose Instruction: TAKE 1 TAB ONCE NEEDED FOR MIGRAINE HEADACHE MAY REPEAT ONCE AFTER AT LEAST 2 HOURS MAX DOSE 2 IN 24 HOURS Rx Instructions: TAKE 1 TAB ONCE NEEDED FOR MIGRAINE HEADACHE MAY REPEAT ONCE AFTER AT L EAST 2 HOURS MAX DOSE 2 IN 24 HOURS estradiol 0.075 mg/24 hr patch semiweekly See Rx Instructions .ROUTE .COMPLEX Qty: 8 3RF Dose Instruction: APPLY 1 PATCH FOR 3 DAYS ALTERNATING WITH 1 PATCH FOR 4 DAYS EACH WEEK FOR 3 WEEKS PER 4 WEEKS CYCLE Rx Instructions: APPLY 1 PATCH FOR 3 DAYS ALTERNATING WITH 1 PATCH FOR 4 DAYS EACH WEEK FOR 3 WEEKS PER 4 WEEKS CYCLE doxycycline hyclate 100 mg Tablet 100 mg PO BID Qty: 10 0RF Referrals: Berny Cruz MD [Primary Care Provider] - Visit Report Forms: Patient Portal/API
--- NOTE | 2022-03-28 04:56 | PC.NURSE ---
RT at bedside for EKG
[2022-03-28 05:50] LABS: Add Manual Diff / Slide Review NO; Basophils Absolute Auto 0 /uL (0-100); Basophils Percent Auto 1.1 % (0-2); Eosinophils Absolute Auto 0 /uL (0-450); Eosinophils Percent Auto 1.4 % (2-4); Hematocrit 34.5 % (36-46); Hemoglobin 11.6 g/dL (12.0-16.0); Lymphocytes Absolute Auto 900 /uL (1100-4500); Lymphocytes Percent Auto 29.8 % (25-40); Mean Corpuscular HGB Conc 33.6 % (30-36); Mean Corpuscular Hemoglobin 28.8 PG (26-34); Mean Corpuscular Volume 85.6 fL (80-100); Monocytes Absolute Auto 100 /uL (0-900); Neutrophils Absolute Auto 1900 /uL (1500-7000); Neutrophils Percent Auto 63.7 % (50-75); Platelet Count 313 X10^3/uL (150-400); Red Blood Cell Count 4.03 X10^6/uL (4.0-5.2); Red Cell Distribution Width 16.2 % (11.6-14.8); White Blood Cell Count 2.9 X10^3/uL (4.5-11.0)
[2022-03-28 05:51] LABS: Alanine Aminotransferase 35 IU/L (<35); Albumin 4.1 g/dL (3.5-5.0); Albumin Globulin Ratio 1.2 (1.0-2.8); Alkaline Phosphatase 65 U/L (38-126); Aspartate Aminotransferase 30 IU/L (14-36); BUN Creatinine Ratio 16.5 (6-22); Bilirubin Total 1.2 mg/dL (0.2-1.3); Blood Urea Nitrogen 13 mg/dL (7-17); Calcium 8.8 mg/dL (8.4-10.2); Carbon Dioxide 28 mmol/L (22-32); Chloride 99 mmol/L (98-107); Creatine Kinase 41 U/L (30-135); Estimated Glomerular Filt Rate > 60 mL/min (>60); Globulin 3.3 g/dL (1.7-4.1); Glucose 108 mg/dL (70-100); HEMOLYSIS < 15 (0-50); Potassium 4.1 mmol/L (3.4-5.1); Sodium 136 mmol/L (137-145); Total Protein 7.4 g/dL (6.3-8.2)
--- NOTE | 2022-03-28 05:57 | PC.NURSE ---
States that she had her port removed 5 weeks ago due to an infection - states that she has now developed some pain to the right side of her neck with radiation to the right hand - states that it is numb and tingling and feels heavy - concerned due to her recent chemo therapy and breast cancer - no weakness noted - full movement noted
[2022-03-28 06:03] LABS: Troponin I < 0.012 ng/mL (0.01-0.034)
--- NOTE | 2022-03-28 06:05 | PC.NURSE ---
To radiology via w/c with tech
--- NOTE | 2022-03-28 06:05 | PC.NURSE ---
Unsuccessful IV attempts x2 - VIOLETA Gasca to bedside for IV start and lab draw - tolerated well
--- NOTE | 2022-03-28 06:12 | PC.NURSE ---
Returns to the room from radiology via w/c
[2022-03-28 06:51] VITALS: BP 116/68; PULSE 72; O2SAT 100
[2022-03-28 07:00] VITALS: PULSE 85; O2SAT 99
== END 2022-03-28 07:26 | disposition home or self-care (01) ==
PROVIDERS: Emergency Provider Emergency Medicine; PCP Family Medicine
DX: M54.2 Cervicalgia (principal); C50.919 Malignant neoplasm of unspecified site of unspecified female breast; R07.9 Chest pain, unspecified
CPT/HCPCS: 70498; 71275; 80053; 82550; 84484; 85025; 93005; 93010; 99281; 99284; Q9967

== ENCOUNTER → 2022-04-11 12:46 | Outpatient (CLI) | payer OTHER, SELFPAY ==
[2022-02-23 02:04] VITALS: BMI 26.6
--- NOTE | 2022-04-11 12:48 | DI.US.S_ITS ---
PROCEDURE: US [facility] VENOUS UP EXTREM RT INDICATIONS: PAIN AND TINGLING TECHNIQUE: Real-time imaging, as well as color and pulse Doppler interrogation, was performed of the right upper extremity deep veins from the inferior neck to the antecubital fossa. COMPARISON: [facility], , [facility] VENOUS UP EXTREM RT, 02/23/2022, 0:10. FINDINGS: The internal jugular vein, visualized portions of the subclavian vein, axillary, and brachial veins are free of intraluminal thrombus. Where physically possible, the veins are normally compressible. Color and pulse Doppler demonstrate normal intraluminal flow, with expected phasicity and pulsatility. Above the elbow, additional scanning of the cephalic and basilic veins of the superficial system demonstrate normal compressibility, without thrombus. There is noncompressible clot in a superficial vein in the right forearm corresponding to the patient's area of symptomatology. IMPRESSION: Focal occlusive SVT in the right forearm. Dictated by: Zechariah Flores M.D. on 04/11/2022 at 20:51 Approved by: Zechariah Flores M.D. on 04/11/2022 at 20:53
== END ==
PROVIDERS: PCP Family Medicine; Referring Provider Nurse Practitioner; Visit Provider Nurse Practitioner
DX: C50.112 Malignant neoplasm of central portion of left female breast (principal); Z17.1 Estrogen receptor negative status [ER-]; I82.611 Acute embolism and thrombosis of superficial veins of right upper extremity
CPT/HCPCS: 93971

== ENCOUNTER → 2022-04-14 13:19 | Outpatient (CLI) | payer OTHER, SELFPAY ==
[2022-02-23 02:04] VITALS: BMI 26.6
[2022-04-14 14:38] LABS: Appearance Urine UA SL CLOUDY; Bilirubin Urine UA NEGATIVE (NEGATIVE); Color Urine UA YELLOW; Glucose Urine UA NEGATIVE (Negative); Ketones Urine UA NEGATIVE (NEGATIVE); Leukocyte Esterase Urine UA TRACE (NEGATIVE); Nitrite Urine UA NEGATIVE (Negative); Occult Blood Urine UA NEGATIVE (Negative); Protein Urine UA NEGATIVE (Negative); Specific Gravity Urine UA 1.025 (1.000-1.035); Urobilinogen Urine UA 0.2 E.U./dL (0.2)
[2022-04-14 15:49] LABS: Bacteria Urine Moderate (10-30); RBC Urine 0-1/HPF (0-5/HPF); Squamous Epithelial Cell Urine 1-5 /HPF (0-5/HPF); WBC Urine 1-5/HPF (0-5/HPF)
== END ==
PROVIDERS: PCP Family Medicine; Referring Provider Physician Assistant; Visit Provider Physician Assistant
DX: R10.9 Unspecified abdominal pain (principal)
CPT/HCPCS: 81001; 87086

== ENCOUNTER → 2022-06-02 09:51 | Outpatient (CLI) | payer OTHER, SELFPAY ==
[2022-02-23 02:04] VITALS: BMI 26.6
[2022-06-02 11:01] LABS: Influenza A - CEPHEID Flu A NEGATIVE (NEGATIVE); Influenza B - CEPHEID Flu B NEGATIVE (NEGATIVE); Respiratory Syncytial Virus Negative (Negative)
[2022-06-02 11:07] LABS: COVID-19 CEPHEID 4-PLEX PCR Negative (Negative)
== END ==
PROVIDERS: PCP Family Medicine; Visit Provider Nurse Practitioner Family
DX: J02.9 Acute pharyngitis, unspecified (principal); J06.9 Acute upper respiratory infection, unspecified; Z20.822 Contact with and (suspected) exposure to COVID-19
CPT/HCPCS: 0241U; 87070

== ENCOUNTER 2022-06-24 23:00 | Emergency (ER) | payer OTHER, SELFPAY ==
[2022-02-23 02:04] VITALS: BMI 26.6
[2022-06-24 23:28] VITALS: BP 132/74; PULSE 105; RESP 16; TEMP 36.2; O2SAT 99; BMI 27.7
--- NOTE | 2022-06-24 23:34 | ED.EXTPRO ---
HPI - Extremity Problem General Chief complaint: Extremity Problem,Nontraumatic Stated complaint: possible blood clot Time Seen by Provider: 06/24/22 23:08 Source: patient Mode of arrival: Ambulatory History of Present Illness HPI Narrative: 41-year-old female nonsmoker with history of triple negative breast cancer [facility] presents with pain and swelling of her leg in the absence of injury. She states that she has pain in her right posterior medial calf when she walks but denies any obvious swelling, redness or fever. She is had no red streaks. She denies any overuse. Additionally, she has become increasingly breathless with a dry hacking cough over the past days or weeks. She denies any hemoptysis or chest pain. She does have some back pain that when she stands seems to wrap around her chest. She denies any hemoptysis, recent travel or history of blood clot. She does have a right anterior chest port and receives chemo, most recently about 8 or 9 days ago. She denies nausea, vomiting or diarrhea. Related Data Previous Rx's Medication Instructions Recorded estradiol 2 mg (7.5 mcg/24 hour) 1 vag ring vaginal [id number] #1 ea 04/25/21 vaginal ring (Estring) rizatriptan 10 mg disintegrating See Rx Instructions .Route 09/12/21 tablet .COMPLEX #8 tabs estradiol 0.075 mg/24 hr See Rx Instructions .Route 01/02/22 semiweekly transdermal patch .COMPLEX #8 patches doxycycline hyclate 100 mg tablet 100 mg PO BID #10 tabs 02/23/22 Allergies Allergy/AdvReac Type Severity Reaction Status Date / Time amoxicillin [AMOXICILLIN] Allergy Unknown RASH Verified 02/22/22 23:00 Review of Systems Review of Systems Narrative: GENERAL: Denies chills, fatigue, malaise, fever, sweats. HEENT: Denies sinus pain, ear pain, sore throat, difficulty swallowing, dizziness. RESPIRATORY: See HPI CARDIOVASCULAR: See HPI GASTROINTESTINAL: Denies nausea, vomiting, abdominal pain, diarrhea, constipation, melena. : Denies dysuria, frequency, incontinence, hematuria, urinary retention. MUSCULOSKELETAL see HPI SKIN: Denies rash, skin lesions, or other NEUROLOGIC: Denies weakness, headache, numbness, change in speech, confusion, seizures, incoordination. PSYCHIATRIC: No concerning psychosocial issues. 12 point review of systems is negative except for those stated above Patient History Medical History BRCA positive Migraines Surgical History Anesthesia History of prophylactic mastectomy of both breasts (06/19/18) Hx of breast reconstruction (11/27/18) Status post appendectomy Status post knee surgery Status post knee surgery Family History Father Age: 65 Colon polyps Social History household members: spouse Smoking Status: Never smoker alcohol intake: current Smoking Status: Never smoker alcohol intake frequency: holidays/special occasions only Substance Use Type: does not use Exam Narrative Exam Narrative: GENERAL: 41[] year old patient appears stated age. Well-developed patient, in mild distress. HEAD: Atraumatic. Normocephalic. EYES: Pupils equal round and reactive. Extraocular motions intact. No scleral icterus. No injection or drainage. ENT: Nose without bleeding, purulent drainage. Throat without erythema, tonsillar hypertrophy or exudate. Airway patent. NECK: Trachea midline. Non tender CARDIOVASCULAR: Regular rate and rhythm without murmurs, gallops, or rubs. RESPIRATORY: Clear to auscultation. Breath sounds equal bilaterally. No wheezes, rales, or rhonchi. GASTROINTESTINAL: Abdomen soft, non-tender, nondistended. EXTREMITIES: No obvious calf pain, swelling, redness, negative Homans BACK: Nontender without deformity or crepitance. No flank tenderness. NEURO: AOx3. SKIN: No rash or erythema of visible areas Initial Vital Signs Initial Vital Signs: Vital Signs Temperature 97.1 F L 06/24/22 23:28 Pulse Rate 105 H 06/24/22 23:28 Respiratory Rate 16 06/24/22 23:28 Blood Pressure 132/74 06/24/22 23:28 Pulse Oximetry 99 06/24/22 23:28 Oxygen Delivery Method 06/24/22 23:28 Course Orders Ordered: ED Orders 06/25/22 02:20 Complete Blood Count AUTO DIFF Stat Comprehensive Metabolic Panel Stat D Dimer Stat Magnesium Stat NT-proBNP (BNP-Adult 18+) Stat Prothrombin Time INR Stat Troponin & CK Cardiac Panel Stat 06/25/22 03:02 CT angio chest PE protocol Stat 06/25/22 05:33 US periph venous low extrem rt Stat Vital Signs Vital signs: Vital Signs - 8 hr 06/24/22 23:28 Temperature 97.1 F L Pulse Rate 105 H Respiratory Rate 16 Blood Pressure 132/74 Pulse Oximetry 99 Oxygen Delivery Method Room Air MDM - Extremity (Nontraumatic) Lab Data Result diagrams: 06/25/22 02:20 06/25/22 02:20 Labs: Lab Results 06/25/22 06/25/22 06/25/22 Range/Units 02:20 02:20 02:20 WBC 12.4 H (4.5-11.0) X10^3/uL RBC 3.19 L (4.0-5.2) X10^6/uL Hgb 9.6 L (12.0-16.0) g/dL Hct 29.2 L (36-46) % MCV 91.5 (80-100) fL MCH 30.2 (26-34) PG MCHC 33.0 (30-36) % RDW 18.0 H (11.6-14.8) % Plt Count 212 (150-400) X10^3/uL Neut % (Auto) Not Reportable Lymph % (Auto) Not Reportable [place] % (Auto) Not Reportable Eos % (Auto) Not Reportable Baso % (Auto) Not Reportable Lymph # (Auto) Not Reportable [place] # (Auto) Not Reportable Baso # (Auto) Not Reportable Total Counted 100 Seg Neutrophils % 37.0 L (38-70) % Band Neutrophils % 23.0 H (3-7) % Lymphocytes % (Manual) 31.0 (25-45) % Monocytes % (Manual) 4.0 (2-11) % Eosinophils % (Manual) 1.0 L (2-4) % Basophils % (Manual) 1.0 (0-1) % Metamyelocytes % 1.0 H (-0) % Myelocytes % 2.0 H (-0) % Neutrophils # (Manual) 7440 H (6575-6291) /uL Toxic Granulation Present H RBC Morphology See below Anisocytosis 2+ H PT 11.8 (10.1-12.7) SECONDS INR 1.0 (0.9-1.3) D-Dimer 1518 H (<500) ng/ml Sodium 138 (137-145) mmol/L Potassium 3.3 L (3.4-5.1) mmol/L Chloride 100 (98-107) mmol/L Carbon Dioxide 29 (22-32) mmol/L BUN 13 (7-17) mg/dL Creatinine 0.84 (0.52-1.04) mg/dL Estimated GFR > 60 (>60) mL/min BUN/Creatinine Ratio 15.5 (6-22) Glucose 97 (70-100) mg/dL Calcium 8.9 (8.4-10.2) mg/dL Magnesium 1.6 (1.6-2.3) mg/dL Total Bilirubin 0.4 (0.2-1.3) mg/dL AST 27 (14-36) IU/L ALT 23 (<35) IU/L Alkaline Phosphatase 93 (38-126) U/L Total Creatine Kinase 37 (30-135) U/L CK-MB (CK-2) TNP CK-MB (CK-2) Rel Index TNP Troponin I < 0.012 (0.01-0.034) ng/mL NT-Pro-B Natriuret Pep 77 (<125) pg/mL Total Protein 6.9 (6.3-8.2) g/dL Albumin 3.9 (3.5-5.0) g/dL Globulin 3.0 (1.7-4.1) g/dL Albumin/Globulin Ratio 1.3 (1.0-2.8) Imaging Data US - DVT: Radiologist's Impression: No DVT CT scan - chest: Radiologist's Impression: No PE MDM Narrative Medical decision making narrative: [41-year-old female with breast cancer on chemotherapy presents with right calf pain in the absence of injury and some vague mid to upper back pain with shortness of breath] Multiple etiologies for patient's symptoms considered including, but not limited to: [Pulmonary embolism, DVT, pneumonia, pneumothorax, anemia, electrolyte abnormality versus other] Prior Charts reviewed: Including prior emergency department visits from as recently as March of this year for neck pain Labs reviewed and interpreted by myself: Critically elevated D-dimer would suggest pursuit of pulmonary embolism and DVT by advanced imaging is appropriate. Otherwise labs are largely very reassuring and free of any significant abnormalities Imaging reviewed: Ultrasound demonstrates no DVT. CT angiogram demonstrates no PE, pneumonia, pneumothorax or other Patient's symptoms improved over duration of stay with above-stated therapies. Findings and discharge diagnosis discussed with patient/family followed by verbalization of understanding Return precautions discussed with patient/family whom verbalize understanding of diagnosis and plan Discharge Plan Departure Patient Disposition: Home Clinical Impression: Pain of right calf, Acute dyspnea Instructions: DI for Calf Muscle Strain Activity Restrictions/Additional Instructions: *You have been diagnosed with [ calf pain, back pain and shortness of breath. As we discussed, your history and physical exam are reassuring as are labs, CT scan and ultrasound. There is no evidence of blood clot, pneumonia, or other significant diagnosis that requires a specific or immediate intervention] *What to do: *Please continue to take your regular medications as directed. *Please follow up with your primary care provider in 2-3 days, call for an appointment. Let them know you were seen in the Emergency Department and that we ask that you be seen in follow up. We will electronically transmit a record of today's note if your PCP is in our system *If you do not have a primary care provider please contact the [facility] Resource line at [phone]. They will ask some questions about your medical history and help get you set up with a doctor in the community. *Return to Emergency Department if you should have any new, worsening or concerning symptoms, such as [fever greater than 101 F, shaking chills, worsening pain, persistent vomiting or other bothersome symptoms] Prescriptions: No Action Estring 2 mg (7.5 mcg /24 hour) ring 1 vag ring vaginal [id number] Qty: 1 3RF Rx Instructions: 1 ring in vagina every 3 months rizatriptan 10 mg tablet,disintegrating See Rx Instructions .ROUTE .COMPLEX Qty: 8 5RF Dose Instruction: TAKE 1 TAB ONCE NEEDED FOR MIGRAINE HEADACHE MAY REPEAT ONCE AFTER AT LEAST 2 HOURS MAX DOSE 2 IN 24 HOURS Rx Instructions: TAKE 1 TAB ONCE NEEDED FOR MIGRAINE HEADACHE MAY REPEAT ONCE AFTER AT LEAST 2 HOURS MAX DOSE 2 IN 24 HOURS estradiol 0.075 mg/24 hr patch semiweekly See Rx Instructions .ROUTE .COMPLEX Qty: 8 3RF Dose Instruction: APPLY 1 PATCH FOR 3 DAYS ALTERNATING WITH 1 PATCH FOR 4 DAYS EACH WEEK FOR 3 WEEKS PER 4 WEEKS CYCLE Rx Instructions: APPLY 1 PATCH FOR 3 DAYS ALTERNATING WITH 1 PATCH FOR 4 DAYS EACH WEEK FOR 3 WEEKS PER 4 WEEKS CYCLE doxycycline hyclate 100 mg Tablet 100 mg PO BID Qty: 10 0RF Referrals: Berny Cruz MD [Primary Care Provider] - Stand Alone Forms: Patient Portal/API
[2022-06-25 02:44] LABS: Hematocrit 29.2 % (36-46); Hemoglobin 9.6 g/dL (12.0-16.0); Mean Corpuscular Hemoglobin 30.2 PG (26-34); Mean Corpuscular Volume 91.5 fL (80-100); Platelet Count 212 X10^3/uL (150-400); Red Blood Cell Count 3.19 X10^6/uL (4.0-5.2); White Blood Cell Count 12.4 X10^3/uL (4.5-11.0)
[2022-06-25 02:47] LABS: Add Manual Diff / Slide Review YES
[2022-06-25 02:48] LABS: Prothrombin Time 11.8 SECONDS (10.1-12.7)
[2022-06-25 02:50] LABS: D Dimer 1518 ng/ml (<500)
[2022-06-25 02:53] LABS: Alanine Aminotransferase 23 IU/L (<35); Albumin 3.9 g/dL (3.5-5.0); Albumin Globulin Ratio 1.3 (1.0-2.8); Alkaline Phosphatase 93 U/L (38-126); Aspartate Aminotransferase 27 IU/L (14-36); BUN Creatinine Ratio 15.5 (6-22); Bilirubin Total 0.4 mg/dL (0.2-1.3); Blood Urea Nitrogen 13 mg/dL (7-17); Calcium 8.9 mg/dL (8.4-10.2); Carbon Dioxide 29 mmol/L (22-32); Chloride 100 mmol/L (98-107); Creatine Kinase 37 U/L (30-135); Estimated Glomerular Filt Rate > 60 mL/min (>60); Glucose 97 mg/dL (70-100); HEMOLYSIS < 15 (0-50); Magnesium 1.6 mg/dL (1.6-2.3); Potassium 3.3 mmol/L (3.4-5.1); Sodium 138 mmol/L (137-145); Total Protein 6.9 g/dL (6.3-8.2)
--- NOTE | 2022-06-25 03:02 | DI.CT.S_ITS ---
PROCEDURE: CT ANGIO CHEST PE PROTOCOL INDICATIONS: SOB, chest/back pain, dry cough, critical Dimer, [place] TECHNIQUE: After the administration of intravenous contrast, 2 mm thick sections acquired from the pulmonary apices to the posterior costophrenic angles. MIP reformats of the arterial vasculature were utilized. For radiation dose reduction, the following was used: automated exposure control, adjustment of mA and/or kV according to patient size. COMPARISON: [facility], CT, CT ANGIO CHEST PE PROTOCOL, 03/28/2022, 5:57. FINDINGS: Pulmonary arteries: Pulmonary arteries are normal in size, and demonstrate no intraluminal filling defects to suggest central pulmonary embolism. Lungs and pleura: Lungs are clear. No pleural effusions or pneumothorax. Central and peripheral airways are patent. Mediastinum: Heart size is normal, without pericardial effusion. No mediastinal or hilar adenopathy. Thoracic aorta is normal in caliber and enhancement. Esophagus is normal in caliber, without hiatal hernia. Bones and chest wall: No suspicious bony lesions. Ribs and thoracic spine appear intact throughout. Thyroid gland unremarkable. No axillary or supraclavicular adenopathy. Abdomen: Visualized upper abdominal solid organs appear normal in the early arterial phase of enhancement. IMPRESSION: Unremarkable CT angiogram of the chest. No evidence of pulmonary embolism, aortic dissection or aneurysm Right-sided Port-A-Cath, and surgical clips in both breasts associated with skin thickening, similar prior exam Note: Final report is concordant with preliminary interpretation by [facility] Approved by: Lonnie Ayala M.D. on 06/25/2022 at 7:08
[2022-06-25 03:05] LABS: NT-proBNP (BNP-Adult 18+) 77 pg/mL (<125); Troponin I < 0.012 ng/mL (0.01-0.034)
[2022-06-25 04:00] LABS: Anisocytosis 2+; Neutrophils Absolute Manual 7440 /uL (3000-5900); Total Cells Counted 100; Toxic Granulation Present
--- NOTE | 2022-06-25 05:33 | DI.US.S_ITS ---
PROCEDURE: US PERIPH VENOUS LOW EXTREM RT INDICATIONS: CRITICAL DIMER. PAIN/SWELLING IN CALF. HX BREAST CANCER. TECHNIQUE: Real-time imaging, as well as color and pulse Doppler interrogation, were performed of the lower extremity deep veins from the inguinal ligament to the popliteal fossa. COMPARISON: None. FINDINGS: The common femoral, femoral and popliteal veins are normally compressible, and free of intraluminal thrombus. Color and pulse Doppler demonstrate normal phasic intraluminal flow. There is normal augmentation response to distal compression maneuver. IMPRESSION: No evidence of deep venous thrombosis, right lower extremity Note: Final report is concordant with preliminary interpretation by [facility] Approved by: Lonnie Ayala M.D. on 06/25/2022 at 7:10
[2022-06-25 06:25] VITALS: BP 124/68; PULSE 74; RESP 14; TEMP 36.5; O2SAT 98
== END 2022-06-25 06:25 | disposition home or self-care (01) ==
PROVIDERS: Emergency Provider Emergency Medicine; PCP Family Medicine
DX: M79.604 Pain in right leg (principal); R06.00 Dyspnea, unspecified; R07.9 Chest pain, unspecified; R79.89 Other specified abnormal findings of blood chemistry
CPT/HCPCS: 36415; 71275; 80053; 82550; 83735; 83880; 84484; 85007; 85025; 85379; 85610; 93971; 99283; 99284; Q9967

== ENCOUNTER → 2022-08-01 10:42 | Outpatient (CLI) | payer OTHER, SELFPAY ==
[2022-02-23 02:04] VITALS: BMI 26.6
[2022-08-01 11:19] LABS: Hematocrit 34.2 % (36-46); Hemoglobin 11.2 g/dL (12.0-16.0); Mean Corpuscular HGB Conc 32.7 % (30-36); Mean Corpuscular Hemoglobin 29.4 PG (26-34); Platelet Count 524 X10^3/uL (150-400); Red Cell Distribution Width 18.5 % (11.6-14.8)
[2022-08-01 11:36] LABS: Alanine Aminotransferase 26 IU/L (<35); Albumin 4.4 g/dL (3.5-5.0); Albumin Globulin Ratio 1.4 (1.0-2.8); Alkaline Phosphatase 86 U/L (38-126); Aspartate Aminotransferase 30 IU/L (14-36); BUN Creatinine Ratio 19.7 (6-22); Bilirubin Total 0.3 mg/dL (0.2-1.3); Bilirubin Unconjugated 0.1 mg/dL (0.0-1.1); Blood Urea Nitrogen 12 mg/dL (7-17); Calcium 9.2 mg/dL (8.4-10.2); Carbon Dioxide 25 mmol/L (22-32); Chloride 105 mmol/L (98-107); Estimated Glomerular Filt Rate > 60 mL/min (>60); Globulin 3.2 g/dL (1.7-4.1); Glucose 98 mg/dL (70-100); HEMOLYSIS < 15 (0-50); Lactate Dehydrogenase 318 U/L (120-246); Sodium 140 mmol/L (137-145); Total Protein 7.6 g/dL (6.3-8.2)
[2022-08-01 11:53] LABS: Free T4, Direct Thyroxine 0.98 ng/dL (0.78-2.19)
[2022-08-01 12:06] LABS: Cortisol Random 7.58 ug/dL; Thyroid Stimulating Hormone 0.207 uIU/mL (0.47-4.68)
[2022-08-01 13:51] LABS: Add Manual Diff / Slide Review YES; White Blood Cell Count 38.7 X10^3/uL (4.5-11.0)
[2022-08-01 13:54] LABS: Neutrophils Absolute Manual 35604 /uL (3000-5900); Total Cells Counted 100
[2022-08-01 13:55] LABS: Anisocytosis 1+
== END ==
PROVIDERS: PCP Family Medicine; Referring Provider Nurse Practitioner; Visit Provider Nurse Practitioner
DX: C50.112 Malignant neoplasm of central portion of left female breast (principal); Z17.1 Estrogen receptor negative status [ER-]
CPT/HCPCS: 36415; 80048; 80076; 82533; 83615; 84439; 84443; 85007; 85025

== ENCOUNTER → 2022-08-17 08:57 | Outpatient (CLI) | payer OTHER, SELFPAY ==
[2022-02-23 02:04] VITALS: BMI 26.6
[2022-08-17 12:08] LABS: Free T4, Direct Thyroxine 0.54 ng/dL (0.78-2.19)
[2022-08-17 12:22] LABS: Thyroid Stimulating Hormone 15.6 uIU/mL (0.47-4.68)
== END ==
PROVIDERS: PCP Family Medicine; Referring Provider Physician Assistant Medical; Visit Provider Physician Assistant Medical
DX: C50.012 Malignant neoplasm of nipple and areola, left female breast (principal); Z17.1 Estrogen receptor negative status [ER-]
CPT/HCPCS: 36415; 84439; 84443

== ENCOUNTER → 2022-09-06 12:43 | Outpatient (CLI) | payer OTHER, SELFPAY ==
[2022-02-23 02:04] VITALS: BMI 26.6
--- NOTE | 2022-09-06 | DI.US.S_ITS ---
PROCEDURE: US PERIPH VENOUS LOW EXTREM LT INDICATIONS: LEFT LOWER LEG PAIN AND SWELLING TECHNIQUE: Real-time imaging, as well as color and pulse Doppler interrogation, were performed of the lower extremity deep veins from the inguinal ligament to the popliteal fossa. COMPARISON: None. FINDINGS: The common femoral, femoral and popliteal veins are normally compressible, and free of intraluminal thrombus. Color and pulse Doppler demonstrate normal phasic intraluminal flow. There is normal augmentation response to distal compression maneuver. IMPRESSION: No deep vein thrombosis of the left lower extremity. Dictated by: Diana De Luna M.D. on 09/06/2022 at 15:52 Approved by: Diana De Luna M.D. on 09/06/2022 at 15:52
== END ==
PROVIDERS: PCP Family Medicine; Referring Provider Physician Assistant; Visit Provider Physician Assistant
DX: C50.912 Malignant neoplasm of unspecified site of left female breast (principal); M79.605 Pain in left leg; M79.89 Other specified soft tissue disorders; Z17.1 Estrogen receptor negative status [ER-]
CPT/HCPCS: 93971

== ENCOUNTER → 2023-07-12 08:50 | Outpatient (CLI) | payer OTHER, SELFPAY ==
[2022-02-23 02:04] VITALS: BMI 26.6
[2023-07-12 10:34] LABS: Cholesterol 245 mg/dL (140-199); HDL Cholesterol 89 mg/dL (40-60); LDL Cholesterol Calculated 131 mg/dL (<100); Triglycerides 126 mg/dL (35-150)
[2023-07-12 10:58] LABS: TSH w/ Reflex to FT4 1.09 uIU/mL (0.47-4.68)
[2023-07-12 15:26] LABS: Ferritin 7 ng/mL (6-137)
== END ==
PROVIDERS: PCP Family Medicine; Referring Provider Physician Assistant; Visit Provider Physician Assistant
DX: E03.9 Hypothyroidism, unspecified (principal); Z13.220 Encounter for screening for lipoid disorders; Z13.6 Encounter for screening for cardiovascular disorders; R79.0 Abnormal level of blood mineral
CPT/HCPCS: 36415; 80061; 82728; 84443

== ENCOUNTER → 2023-10-30 17:28 | Outpatient (CLI) | payer OTHER, SELFPAY ==
[2022-02-23 02:04] VITALS: BMI 26.6
--- NOTE | 2023-10-30 17:29 | DI.RAD.S_ITS ---
PROCEDURE: XR CHEST 2V INDICATIONS: Cough TECHNIQUE: 2 views of the chest were acquired. COMPARISON: None. FINDINGS: Surgical changes and devices: Multiple surgical clips. Lungs and pleura: Lungs are clear. No pleural effusions or pneumothorax. Mediastinum: Mediastinal contours are normal. Heart size is normal. Bones and chest wall: No suspicious bony abnormalities. Soft tissues appear unremarkable. IMPRESSION: No consolidation. Dictated by: Zachery Mo M.D. on 10/30/2023 at 20:25 Approved by: Zachery Mo M.D. on 10/30/2023 at 20:26
== END ==
PROVIDERS: PCP Family Medicine; Referring Provider Nurse Practitioner Family; Visit Provider Nurse Practitioner Family
DX: R05.9 Cough, unspecified (principal)
CPT/HCPCS: 71046